=== PATIENT | male | born 1950 | race Caucasian/White ===

== ENCOUNTER → 2019-11-08 13:22 | Outpatient (CLI) | payer MEDICARE, OTHER, SELFPAY ==
--- NOTE | ~2019-11-08 | XR_ITS ---
XR hand BI arthritis min 3V DATE: 11/08/2019 14:34 INDICATION: Right hand pain TECHNIQUE: 4 views of each hand COMPARISON: None FINDINGS: No fracture, dislocation or periosteal reaction or bone destruction. No erosive changes or chondrocalcinosis. Joint spaces are relatively preserved other than narrowing at the distal interphal angeal joint of the fifth digit consistent with osteoarthritis. IMPRESSION: Mild osteoarthritis Reviewed, dictated and finalized at location A. IMPRESSION: Mild osteoarthritis
== END ==
PROVIDERS: PCP Family Medicine; Visit Provider Family Medicine
DX: M19.041 Primary osteoarthritis, right hand (principal); M19.042 Primary osteoarthritis, left hand
CPT/HCPCS: 73130

== ENCOUNTER 2020-01-21 01:50 | Outpatient (CLI) | payer MEDICARE, OTHER, SELFPAY ==
[2020-01-21 21:18] LABS: SARS-CoV-2 RNA PCR Negative
== END 2020-01-21 01:51 | disposition home or self-care (01) ==
LOC: ANHCOVIDDT 01:50
PROVIDERS: PCP Family Medicine; Visit Provider Internal Medicine Gastroenterology
DX: Z01.812 Encounter for preprocedural laboratory examination (principal); Z20.828 Contact with and (suspected) exposure to other viral communicable diseases
CPT/HCPCS: 87635; C9803; U0003

== ENCOUNTER 2020-01-25 01:22 | Day surgery (SDC) | payer MEDICARE, OTHER, SELFPAY ==
[2020-01-19 11:57] VITALS: BMI 36.1
--- NOTE | 2020-01-25 06:58 | WPDANESEPPF ---
Anes - Initial Pre Proc Eval Procedure: Operation Date: 01/25/20 09:30 Proposed Procedures p Screening Colonoscopy - Charly Walton MD Date/Time: 01/25/20 06:58 Surgeon: Charly Walton MD Pre Op Diagnosis: Hx Colon Polyps Patient Data Age: 69 Gender: M Height: 1.73 m Weight: 108 kg Allergies Allergy/AdvReac Type Severity Reaction Status Date / Time allopurinol Allergy Intermediate Gastrointestinal Verified 01/25/20 08:08 Upset Penicillins Allergy Intermediate Unknown Verified 01/25/20 08:08 phenol Allergy Intermediate HIVES Verified 01/25/20 08:08 Home Medications Medication Instructions Recorded Confirmed Type losartan 100 1 tablet PO DAILY #90 tablet 01/21/19 01/19/20 Rx mg-hydrochlorothiazide 12.5 mg tablet cetirizine 5 mg-pseudoephedrine ER 1 tablet PO Q12H PRN #180 tablet 08/29/19 01/19/20 Rx 120 mg tablet,extended release,12hr azelastine 137 mcg (0.1 %) nasal 137 mcg NASAL Q12H #30 ml 10/05/19 01/19/20 Rx spray aerosol levothyroxine 100 mcg tablet 100 mcg PO DAILY #90 tablet 10/18/19 01/19/20 Rx albuterol sulfate 90 mcg/actuation 1 inhalation INHALATION Q4H PRN 10/19/19 01/19/20 History aerosol inhaler atorvastatin 40 mg PO DAILY 01/19/20 01/19/20 History colchicine 0.6 mg PO BID PRN 01/19/20 01/19/20 History Patient hx anesthesia problems: none Family hx anesthesia problems: none PMFSH Past Medical History Medical History (Updated 01/25/20 @ 07:02 by Zane Marin MD) Benign essential hypertension with target blood pressure below 140/90 Bilateral hand pain Elevated high sensitivity C-reactive protein Elevated homocysteine Hypothyroidism, unspecified Mixed hyperlipidemia Nocturia Obesity Osteoarthritis involving multiple joints on both sides of body Polyarthralgia Family History Family History Father Patient's father is , Onset Age: 87 Family history of malignant neoplasm Sibling Patient's brother is , Onset Age: 75 Family history of liver disease, Onset Age: 50 Family history of malignant neoplasm Family history of pancreatic cancer, Onset Age: 76 Grandparent Acute myocardial infarction, Onset Age: 80 Cerebrovascular accident, Onset Age: 80 Mother Family history of pancreatic cancer, Onset Age: 84 Social History Social History Smoking status: Never smoker Alcohol intake: current Drinks per week: 4 Alcohol use details: WINE Substance use: never Substance use type: does not use Spiritual care concerns: No Anes - Eval Final PreProcedure Day of Procedure 01/25/20 06:58 Patient weight: obese Heart: regular rate and rhythm Lungs: clear to auscultation and normal air movement Airway: Mallampati scale class II Neurological: alert and oriented Last oral intake: >/= 8 hours ASA classification: III Emergent: no Anesthetic plan: proceed Anesthesia type and monitoring: general GIVS Informed Consent: The patient's anesthetic plan and its attendant risks and benefits were discussed with the patient/family/POA. Questions were solicited and answers provided to the satisfaction of the patient/family/POA.
[2020-01-25] MEDS: LACTATED RINGERS 1,000 ML 150 ML IV CONT (08:16)
[2020-01-25 08:20] VITALS: BP 149/86; PULSE 87; RESP 22; TEMP 36.8; O2SAT 97; BMI 36.4
--- NOTE | 2020-01-25 08:47 | WPDGICN ---
Assessment and Plan Assessment and plan (1) History of colon polyps: Code(s): Z86.010 - Personal history of colonic polyps Status: Acute Assessment and Plan: Patient has a history of tubular adenomatous colon polyp removed from the colon 2014. Plan is for high-fiber diet. Follow-up colonoscopy is recommended now on at 5 year intervals in the future. GI Consult Note Consult date/time: 01/25/20 08:47 HPI: Cesar Quick is a 69 year old male Seen in evaluation at the request of Dr. Reveles. Patient has a history of colon polyps. In 2014 found to have an adenoma of the colon. Family history is significant his mother had colon polyps as well. Patient states that his current weight appetite bowel movements are normal. He denies abdominal pain. He has had no bleeding. Patient presents today for surveillance colonoscopy. Review of Systems Review of Systems: All systems reviewed & are unremarkable except as noted in HPI and below PMFSH Past Medical History Medical History (Updated 01/25/20 @ 08:49 by Charly Walton MD) Benign essential hypertension with target blood pressure below 140/90 Bilateral hand pain Elevated high sensitivity C-reactive protein Elevated homocysteine Hypothyroidism, unspecified Mixed hyperlipidemia Nocturia Obesity Osteoarthritis involving multiple joints on both sides of body Polyarthralgia Family History Family History Father Patient's father is , Onset Age: 87 Family history of malignant neoplasm Sibling Patient's brother is , Onset Age: 75 Family history of liver disease, Onset Age: 50 Family history of malignant neoplasm Family history of pancreatic cancer, Onset Age: 76 Grandparent Acute myocardial infarction, Onset Age: 80 Cerebrovascular accident, Onset Age: 80 Mother Family history of pancreatic cancer, Onset Age: 84 Social History Social History Smoking status: Never smoker Alcohol intake: current Drinks per week: 4 Alcohol use details: WINE Substance use: never Substance use type: does not use Spiritual care concerns: No Meds Home Medications and Allergies Home Medications Medication Instructions Recorded Confirmed Type losartan 100 1 tablet PO DAILY #90 tablet 01/21/19 01/19/20 Rx mg-hydrochlorothiazide 12.5 mg tablet cetirizine 5 mg-pseudoephedrine ER 1 tablet PO Q12H PRN #180 tablet 08/29/19 01/19/20 Rx 120 mg tablet,extended release,12hr azelastine 137 mcg (0.1 %) nasal 137 mcg NASAL Q12H #30 ml 10/05/19 01/19/20 Rx spray aerosol levothyroxine 100 mcg tablet 100 mcg PO DAILY #90 tablet 10/18/19 01/19/20 Rx albuterol sulfate 90 mcg/actuation 1 inhalation INHALATION Q4H PRN 10/19/19 01/19/20 History aerosol inhaler atorvastatin 40 mg PO DAILY 01/19/20 01/19/20 History colchicine 0.6 mg PO BID PRN 01/19/20 01/19/20 History Allergies Allergy/AdvReac Type Severity Reaction Status Date / Time allopurinol Allergy Intermediate Gastrointestinal Verified 01/25/20 08:08 Upset Penicillins Allergy Intermediate Unknown Verified 01/25/20 08:08 phenol Allergy Intermediate HIVES Verified 01/25/20 08:08 Vital Signs Vital Signs - 24 hr 01/25/20 08:20 Temperature 98.2 F Pulse Rate 87 Respiratory Rate 22 H Blood Pressure 149/86 H Pulse Oximetry 97 Exam Narrative: Exam Narrative: Physical exam reveals patient to be alert. Vital signs stable. HEENT exam unremarkable. Lungs are clear to auscultation and percussion. Heart is without murmur or extra sounds. Abdominal exam bowel sounds are present soft nontender with no hepatosplenomegaly. Digital external rectal exam is normal.
[2020-01-25 09:17] VITALS: BP 123/79; PULSE 83; RESP 21; O2SAT 96
[2020-01-25 09:27] VITALS: BP 136/88; PULSE 76; RESP 21; O2SAT 96
[2020-01-25 09:37] VITALS: BP 138/94; PULSE 75; RESP 22; O2SAT 99
[2020-01-25 09:45] VITALS: BP 155/97; PULSE 71; RESP 20; O2SAT 98
== END 2020-01-25 09:49 | disposition home or self-care (01) ==
PROVIDERS: PCP Family Medicine; Visit Provider Internal Medicine Gastroenterology
PROC: 0DJD8ZZ Inspection of Lower Intestinal Tract, Via Natural or Artificial Opening Endoscopic (ICD-10-PCS; CPT 45378; principal; 2020-01-25 09:30)
DX: Z12.11 Encounter for screening for malignant neoplasm of colon (principal); D12.2 Benign neoplasm of ascending colon; D12.5 Benign neoplasm of sigmoid colon; K64.8 Other hemorrhoids; I10 Essential (primary) hypertension; E03.9 Hypothyroidism, unspecified; E78.2 Mixed hyperlipidemia; M19.90 Unspecified osteoarthritis, unspecified site; E66.9 Obesity, unspecified; Z68.36 Body mass index [BMI] 36.0-36.9, adult
CPT/HCPCS: 45385; 88305; J2704; J7120

== ENCOUNTER → 2020-06-12 09:44 | Outpatient (CLI) | payer MEDICARE, OTHER, SELFPAY ==
--- NOTE | ~2020-06-12 | CT_ITS ---
EXAMINATION: CT sinus wo con EXAM DATE: 06/12/2020 09:56 INDICATION: Chronic sinusitis, surgery 4-5 years ago. TECHNIQUE: Spiral CT of the sinuses was acquired in the axial plane. Coronal and sagittal reformatte d images were also reviewed. The dose-length product (DLP) for this examination was 259.66 mGy-cm. Iterative reconstruction (ASIR) was used as dose reduction technique. Comparison is made to prior exa mination from 12/21/2018. FINDINGS: The sinuses are normally developed. The sinuses are well aerated. Small amount of opac ity occluding the left ostiomeatal unit infundibulum, however there appears to be a widely patent win rosemarie procedure. There is trace amount of fluid within both maxillary sinuses. Otherwise sinuses are we ll aerated. There is no sinus wall thickening. There is mild S-shaped nasal septal deviation. The mastoid air cells and middle ears are well aerated. External auditory canals are patent. The orb its and visualized soft tissues are unremarkable. IMPRESSION: Trace bilateral maxillary sinus fluid. Reviewed, dictated and finalized at location A.
== END ==
PROVIDERS: PCP Family Medicine; Visit Provider Otolaryngology
DX: J32.9 Chronic sinusitis, unspecified (principal)
CPT/HCPCS: 70486

== ENCOUNTER 2021-01-02 14:36 | Outpatient (CLI) | payer MEDICARE, SELFPAY ==
--- NOTE | ~2021-01-02 | CT_ITS ---
EXAMINATION: CT abdomen pelvis wo con DATE: 01/02/2021 15:00 INDICATION: Left lower quadrant abdominal pain. TECHNIQUE: Computed tomography (CT) of the abdomen and pelvis was performed without intravenous contr ast. Automated exposure control and iterative reconstruction technique were employed. The dose-length product was 1381.85 mGy-cm. COMPARISON: None. FINDINGS: The visualized portions of the lung bases demonstrate mild atelectasis on the right. No ple ural effusion. The heart size is normal. There are coronary artery calcifications. No pericardial eff usion. There is diffuse hepatic steatosis. The gallbladder, spleen, pancreas, adrenal glands, and kid neys are normal. There is no urolithiasis. There are scattered diverticula in the colon. There is fat stranding around a diverticulum of sigmoid colon with local bowel wall thickening, consistent with d iverticulitis. The appendix is normal. There is prominent fat in left inguinal canal that may be a he rnia. There are no pathologically enlarged lymph nodes. There is no free intraperitoneal fluid. There are chronic bilateral L5 pars defects. There is 4 mm anterolisthesis of L5 on S1. There is mild thor acolumbar spondylosis. IMPRESSION: 1. Acute sigmoid diverticulitis. No perforation or abscess. Reviewed, dictated and finalized at location A.
== END 2021-01-02 14:37 | disposition home or self-care (01) ==
LOC: ANHIMG 14:41
PROVIDERS: PCP Family Medicine; Visit Provider Family Medicine
DX: R10.32 Left lower quadrant pain (principal); K57.32 Diverticulitis of large intestine without perforation or abscess without bleeding
CPT/HCPCS: 74176

== ENCOUNTER 2021-05-29 10:16 | Outpatient (CLI) | payer MEDICARE, SELFPAY ==
--- NOTE | 2021-05-29 11:00 | NEURO_ITS ---
Impression: # Complains of numbness of hands. # Severe left Carpal Tunnel Syndrome. # Right Carpal Tunnel Syndrome. # No ulnar neuropathy. # Needle/EMG exam revealed neurogenic changes in left 1st DI and Ext Indicis. # Patient does have ulnar to median cross innervation. # Patient would benefit from MRI C-spine to rule out possibility of cervical myelopathy. Nerve Conduction Studies Anti Sensory Summary Table Stim Site NR Peak (ms) P-T Amp (?V) Site1 Site2 Delta-P (ms) Dist (cm) Keven (m/s) Left Median Anti Sensory (2-3nd Digit) Wrist 8.1 7.7 Wrist 2-3nd Digit 8.1 14.0 17 Wrist 9.4 7.6 Wrist 2-3nd Digit 8.1 14.0 17 Right Median Anti Sensory (2-3nd Digit) Wrist 6.2 27.3 Wrist 2-3nd Digit 6.2 14.0 23 Wrist 6.8 17.9 Wrist 2-3nd Digit 6.2 14.0 23 Left Radial Anti Sensory (Base 1st Digit) Wrist 2.1 16.1 Wrist Base 1st Digit 2.1 0.0 Right Radial Anti Sensory (Base 1st Digit) Wrist 2.3 18.1 Wrist Base 1st Digit 2.3 0.0 Left Ulnar Anti Sensory (5th Digit) Wrist 2.5 35.4 Wrist 5th Digit 2.5 14.0 56 Right Ulnar Anti Sensory (5th Digit) Wrist 2.6 17.1 Wrist 5th Digit 2.6 14.0 54 Motor Summary Table Stim Site NR Onset (ms) O-P Amp (mV) Site1 Site2 Delta-0 (ms) Dist (cm) Keven (m/s) Left Median Motor (Abd Poll Brev) Wrist 9.8 1.0 Elbow Wrist 7.1 30.0 42 Elbow 16.9 0.9 Right Median Motor (Abd Poll Brev) Wrist 3.8 2.1 Elbow Wrist 6.5 30.0 46 Elbow 10.3 0.9 ELB/ADM Wrist 0.2 0.0 Left Ulnar Motor (Abd Dig Minimi) Wrist 3.0 3.6 A Elbow Wrist 4.9 30.0 61 A Elbow 7.9 2.3 Right Ulnar Motor (Abd Dig Minimi) Wrist 2.4 6.5 A Elbow Wrist 5.5 32.0 58 A Elbow 7.9 5.6 B Elbow Wrist 0.3 0.0 F Wave Studies NR F-Lat (ms) L-R F-Lat (ms) Left Median (Mrkrs) (Abd Poll Brev) 30.07 0.53 Right Median (Mrkrs) (Abd Poll Brev) 30.60 0.53 Left Ulnar (Mrkrs) (Abd Dig Min) 30.54 0.15 Right Ulnar (Mrkrs) (Abd Dig Min) 30.39 0.15 EMG Side Muscle Nerve Root Ins Act Fibs Amp Dur Recrt Comment Right 1stDorInt Ulnar C8-T1 Nml Nml Nml Nml Nml Right Ext Indicis Radial (Post Int) C7-8 Nml Nml Nml Nml Nml Right Ext Digitorum Radial (Post Int) C7-8 Nml Nml Nml Nml Nml Right BrachioRad Radial C5-6 Nml Nml Nml Nml Nml Right PronatorTeres Median C6-7 Nml Nml Nml Nml Nml Right Abd Poll Brev Median C8-T1 Nml Nml Nml Nml Nml Left 1stDorInt Ulnar C8-T1 Nml Nml Nml >12ms Reduced Left Ext Indicis Radial (Post Int) C7-8 Nml Nml Nml >12ms Reduced Left Ext Digitorum Radial (Post Int) C7-8 Nml Nml Nml Nml Nml Left BrachioRad Radial C5-6 Nml Nml Nml Nml Nml Left PronatorTeres Median C6-7 Nml Nml Nml Nml Nml Left Abd Poll Brev Median C8-T1 Nml Nml Nml Nml Nml Right ABD Dig Min Ulnar C8-T1 Nml Nml Nml Nml Nml Left ABD Dig Min Ulnar C8-T1 Nml Nml Nml Nml Nml MTDD
== END 2021-05-29 10:17 | disposition home or self-care (01) ==
LOC: ANHNEURO 10:18
PROVIDERS: PCP Family Medicine; Visit Provider Family Medicine
DX: G56.03 Carpal tunnel syndrome, bilateral upper limbs (principal)
CPT/HCPCS: 95886; 95911

== ENCOUNTER 2021-06-11 16:32 | Outpatient (CLI) | payer MEDICARE, SELFPAY ==
--- NOTE | ~2021-06-11 | MR_ITS ---
EXAMINATION: MR cervical spine wo con DATE: 06/11/2021 17:51 INDICATION: Neck pain. Numbness and tingling. Abnormal electromyelogram and nerve connection study. TECHNIQUE: Magnetic resonance imaging (MRI) of the cervical spine was performed without intravenous c ontrast. Sequences included sagittal T2-weighted FSE, sagittal and coronal T2-weighted FS FSE, sagitt al T1-weighted FSE, axial MERGE, and axial T2-weighted FSE. COMPARISON: None FINDINGS: There is 11 degrees levoscoliosis of cervicothoracic spine. There is kyphosis of cervical s pine. There is 3 mm anterolisthesis of C7 on T1. Vertebral body heights are normal. There is moderate ly decreased disc height at C4-C5, severely decreased disc height at C5-C6 and C6-C7, and moderately decreased disc height at C7-T1. The spinal cord signal intensity is normal. The following disc levels are specifically discussed: C2-C3: The disc does not extend beyond the endplate margin. There is mild left uncovertebral joint os teoarthritis. There is mild bilateral facet joint osteoarthritis. There is no neural foraminal stenos is. There is no central canal stenosis. C3-C4: The disc is bulging. There is moderate right and severe left uncovertebral joint osteoarthriti s. There is severe bilateral facet joint osteoarthritis. There is moderate right and severe left neur al foraminal stenosis. There is mild central canal stenosis. C4-C5: The disc is bulging. There is moderate right and severe left uncovertebral joint osteoarthriti s. There is mild right facet joint osteoarthritis. There is ankylosis of left facet joint with modera te hypertrophy. There is mild right and moderate left neural foraminal stenosis. There is mild centra l canal stenosis. C5-C6: The disc is bulging. There is severe bilateral uncovertebral joint osteoarthritis. There is mi ld right and severe left facet joint osteoarthritis. There is mild right and moderate left neural for aminal stenosis. There is mild central canal stenosis. C6-C7: The disc is bulging. There is severe bilateral uncovertebral joint osteoarthritis. There is mo derate bilateral facet joint osteoarthritis. There is mild right and moderate left neural foraminal s tenosis. There is mild central canal stenosis. C7-T1: The disc is bulging. There is severe bilateral uncovertebral joint osteoarthritis. There is se macy bilateral facet joint osteoarthritis. There is mild right and severe left neural foraminal steno sis. There is mild central canal stenosis. IMPRESSION: 1. Severe cervical spondylosis. Reviewed, dictated and finalized at location A.
== END 2021-06-11 16:33 | disposition home or self-care (01) ==
LOC: ANHIMG 16:33
PROVIDERS: PCP Family Medicine; Visit Provider Family Medicine
DX: M47.813 Spondylosis without myelopathy or radiculopathy, cervicothoracic region (principal); M48.03 Spinal stenosis, cervicothoracic region; R94.131 Abnormal electromyogram [EMG]; G95.9 Disease of spinal cord, unspecified
CPT/HCPCS: 72141

== ENCOUNTER 2021-06-28 13:42 | Outpatient (CLI) | payer MEDICARE, SELFPAY ==
--- NOTE | 2021-07-02 22:04 | WPDPFTINT ---
PFT Procedure Performed PFT Procedure Performed Spirometry with Pre/Post Bronchodilator Plethysmography (Lung Vol) Diffusing Cap (DLCO) Flow Vol Loop PFT Interpretation DOS: 06/28/2021 REQUESTING: Dr Brian Reveles REASON FOR TESTING: Cough PULMONARY FUNCTION TESTS Results are reliable and reproducible. Spirometry: Pre-bronchodilator FEV1 is 73% predicted, 2.25 L which is mildly reduced. FVC pre bronchodilators 88%, 3.58 L, normal. FEV1/FVC is 63%, decreased and consistent with airflow obstruction. After bronchodilator administration there is a 15% increase in FEV1 which is greater than 200 mils. This is a significant response Lung volumes: total lung capacity is 102%, 6.75 L, normal. FRC is 110% predicted, 3.83 L which is normal. ERV is 28% which is reduced. Residual volume is 137%, 3.16 L, above normal consistent with air trapping. The RV/TLC is increased 47% reflecting air trapping. Airway resistance is increased. Diffusion: DLCO is 102%, normal. Flow volume loop: Normal. IMPRESSION: There is a mild obstructive ventilatory impairment with air trapping and normal diffusion. There was an excellent response to bronchodilator. IN the proper clinical setting, this pattern may be compatible with asthma. Tiffanie Hathaway MD
== END 2021-06-28 13:43 | disposition home or self-care (01) ==
PROVIDERS: PCP Family Medicine; Visit Provider Family Medicine
DX: R05.9 Cough, unspecified (principal); R94.2 Abnormal results of pulmonary function studies
CPT/HCPCS: 94060; 94726; 94729

== ENCOUNTER 2024-02-18 09:37 | Outpatient (CLI) | payer MEDICARE, SELFPAY ==
--- NOTE | ~2024-02-18 | CT_ITS ---
Non-contrast CT scan of the Abdomen and Pelvis Clinical indication: Abdominal pain Technique: 2.5 mm axial scans were obtained through the abdomen and pelvis without intravenous or or al contrast. Dose reduction technique was used on this scan by utilizing automated exposure control a nd iterative reconstruction technique. The dose-length product (DLP) was 1300.01 mGy-cm. COMPARISON: 01/02/2021 Findings: Images through the lung bases reveal no abnormalities. There is no evidence of renal or ureteral calculi. The kidneys and the ureters are nondilated. The liver, spleen, pancreas, gallbladder, and adrenals appear normal. There is no aortic aneurysm. There is no evidence of bowel obstruction. There is wall thickening and inflammatory change of the di stal descending colon with underlying diverticular disease, consistent with acute diverticulitis. No abscess or free air. Images through the pelvis were performed. There is no evidence of ascites or lymphadenopathy. Urinary bladder unremarkable. No pelvic mass seen. No ascites. Bilateral L5 pars interarticularis defects are present, with grade 1 anterolisthesis of L5 over S1. Impression: Acute diverticulitis of the distal descending colon. No abscess or free air. No bowel obstruction. Reviewed, dictated and finalized at [facility]. [employer]IST Impression: Acute diverticulitis of the distal descending colon. No abscess or free air. No bowel obstruction.
== END 2024-02-18 09:38 | disposition home or self-care (01) ==
LOC: ANHIMG 09:42
PROVIDERS: PCP Family Medicine; Visit Provider Nurse Practitioner Family
DX: K57.32 Diverticulitis of large intestine without perforation or abscess without bleeding (principal)
CPT/HCPCS: 74176

== ENCOUNTER 2024-12-02 07:37 | Day surgery (SDC) | payer MEDICARE, SELFPAY ==
[2024-11-09 15:43] VITALS: BMI 37.7
[2024-11-22 12:27] VITALS: BMI 37.5
--- OUTSIDE RECORDS SUMMARY | 2024-12-02 07:44 | XMS_ITS | Clinical Summary ---
Author Organization [facility] Address [address] [place] [address] Care Team Providers Care Director Of Retail Analytics Name Role Phone Unavailable Primary Care Provider Unavailabl e Allergies Active Allergy Reactions Criticality Noted Date Comments Penicillins Hives High 07/30/2021 Medications atorvastatin (LIPITOR) 40 mg tablet Take 40 mg by mouth daily. 2 Active azelastine (ASTELIN) 137 mcg/actuation nasal spray USE 1 SPRAY(S) IN EACH NOSTRIL EVERY 12 HOURS 2 Active Allergy Relief-D, cetirizine, 5-120 mg tablet TAKE 1 TABLET BY MOUTH EVERY 12 HOURS NEEDED FOR ALLERGY SYMPTOMS 2 Active levothyroxine 100 mcg tablet Take 100 mcg by mouth daily. 2 Active irbesartan-hydroCH LOROthiazide (AVALIDE) 150-12.5 mg tablet Take 1 Tablet by mouth daily. 2 Active COLCHICINE ORAL Take 1.63 mg by mouth. Active ketotifen (Allergy Eye, ketotifen,) 0.025% solution Acti ve Fish Oil-Menlo-3 Fatty Acids 300-500 mg Capsule Take by mouth. Active CALCIUM CARBONATE-VITAMIN D3 ORAL Take by mouth. Active cannabidiol, CBD, product, for documentation purposes, Take by mouth. Lotion and drops Active methylPREDNISolone (MEDROL) 4 mg tabletIndications: Carpal tunnel syndrome, unspecified upper limb TAKE 1 TAB BY MOUTH FOR 7 DAYS 21 Tablet 2 Active Active Problems No known active problems Social History Tobacco Use Types Packs/Day Years Used Date Smoking Tobacco: Never Assessed Sex and Gender Information Value Date Recorded Sex Assigned at Not on file Legal Sex Male 9:45 AM CDT Gender Identity Not on file Sexual Orientation Not on file Last Filed Vital Signs Vital Sign Reading Time Taken Comments Blood Pressure 138/82 07/30/2021 1:40 PM CDT Pulse - - Temperature 37.1 C (98.7 F) 07/30/2021 1:40 PM CDT Respiratory Rate 18 07/30/2021 1:40 PM CDT Oxygen Saturation - - Inhaled Oxygen Concentration - - Weight 114.3 kg (252 lb) 07/30/2021 1:40 PM CDT Height 172.7 cm (5' 8) 07/30/2021 1:40 PM CDT Body Mass Index 38.32 07/30/2021 1:40 PM CDT Plan of Treatment Health Maintenance Due Date Last Done Comments DTAP/TDAP/TD VACCINES (1 - Tdap) 12/10/1971 COLORECTAL SCREENING 1997 Colorectal Cancer Screening 1997 FIT-DNA Q 3 years 1997 FIT/FOBT Q 1 year 1997 Flex Sig/CT Colonography Q 5 years 1997 PNEUMOCOCCAL VACCINE 50+ YEARS (1 of 1 - PCV) 12/10/19 03 ZOSTER VACCINE (1 of 2) 2002 INFLUENZA VACCINE (#1) 2024 RSV VACCINE (60+ or ) (1 - 1-dose 75+ series) 12/10/2027 Insurance [employer] [facility] Address: [facility] [id number] [place] [id number]
--- OUTSIDE RECORDS SUMMARY | 2024-12-02 07:44 | XMS_ITS | Clinical Summary ---
Author Organization [facility] Address [address] [place] [id number] Care Team Providers Care Station Baggage Agent Name Role Phone Brian Reveles MD Primary Care Provider [phone] Allergies Active Allergy Reactions Criticality Noted Date Comments Benzocaine-Phenol Hives Medium 10/28/2022 Penicillins Hives High 07/30/2021 Medications levothyroxine (SYNTHROID) 100 mcg tablet Take 1 tablet (100 mcg total) by mouth daily Active irbesartan-hyd rochlorothiazi de (AVALIDE) 150-12.5 mg per tablet Take 1 tablet by mouth daily Active cetirizine-pse udoephedrine ER (ZyrTEC-D) 5-120 mg per 12 hr tablet 2 (two) times a day Active azelastine (ASTELIN) 137 mcg (0.1 %) nasal spray 2 (two) times a day 2 Active colchicine, gout, (COLCRYS) 0.6 mg tablet daily as needed 3 Active ketotifen (ZADITOR) 0.025 % ophthalmic solution Active omega-3 fatty acids-fish oil 300-500 mg capsule Take by mouth Active fluticasone propionate (FLONASE) 50 mcg/actuation nasal spray daily 3 Active [facility] vitamin D3 4,000 IU or 400 IU ([id number]) capsule Take by mouth daily Take at approximately the same time each day. Active HYDROcodone-ac etaminophen (NORCO) 5-325 mg per tabletIndicati ons:Pain Take 1 tablet by mouth every 6 (six) hours as needed for pain 15 tablet Active atorvastatin (LIPITOR) 40 mg tablet 3 Active cyanocobalamin (Vitamin B-12) 1,[address] 1 TABLET EVERY DAY BY SUBLINGUAL ROUTE IN THE MORNING FOR 90 DAYS. Active doxycycline 100 mg capsule Take 1 tablet/capsule (100 mg total) by mouth 2 (two) times a day Active Breo Ellipta 100-25 mcg/dose diskus inhaler 1 puff daily Ac tive montelukast (SINGULAIR) 10 mg tablet Take 1 tablet (10 mg total) by mouth nightly Active omeprazole (PriLOSEC) 40 mg capsule TAKE 1 CAPSULE BY MOUTH EVERY DAY 30 MINUTES BEFORE MORNING MEAL FOR 90 DAYS Active levoFLOXacin (LEVAQUIN) 500 mg tablet Take 1 tablet (500 mg total) by mouth daily Active albuterol HFA (PROVENTIL HFA,VENTOLIN HFA,PROAIR HFA) 90 mcg/actuation inhaler 2 INH INHALED EVERY 4 HOURS NEEDED FOR SHORTNESS OF BREATH OR WHEEZING Active Active Problems Problem Noted Date Diagnosed Date Carpal tunnel syndrome, bilateral 11/05/2022 Trigger finger, left index finger 11/05/2022 Hypothyroidism 10/23/2022 Impaired fasting glucose 10/23/2022 Immunizations Immunization Administration Dates Next Due Influenza, Quadrivalent, Spl it, Preservative Free, Intramuscular 12/27/2013 Influenza, Trivalent, High D ose, Split, Preservative Free, Intramuscular 01/18/2019,01/02/2018 Pneumococcal Conjugate PCV 13 01/02/2018 ZOSTER Recombinant 01/18/2019 Surgical History Surgery Date Site/Laterality Comments KNEE ARTHROSCOPY W/ LATERAL RELEASE both knees 1985 Medical History Medical History Date Comments Arthritis 2019 Hypertension 2000 Thyroid disease 2020 Allergic rhinitis Hypothyroidism Family History Medical History Relation Name Comments Cancer Father Duke Quick Cancer Mother Tracy Quick Relation Name Status Comments Father Duke Quick Mother Tracy Quick Social History Tobacco Use Types Packs/Day Years Used Date Smoking Tobacco: Never Passive Smoke Exposure: Never Smokeless Tobacco: Never Tobacco Cessation:Counseling Given: Not Answered AUDIT-C Answer Date Recorded Q1: How often do you have a drink containing alc ohol? 2-3 times a week 12/17/2022 Q2: How many drinks containi ng alcohol do you have on a typical day when you are drinking? 3 or 4 12/17/2022 Q3: How often do you have si x or more drinks on one occasion? Never 12/17/2022 Personal Safety Answer Date Recorded Have you ever been in or are you currently in a harmful physical or emotional relationship or is someone making you feel afraid or unsafe? 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 file Not on file Not on danny e Obstetrics History Last Filed Vital Signs Vital Sign Reading Time Taken Comments Blood Pressure 157/84 12/17/2022 12:10 PM CDT Pulse 69 12/17/2022 12:10 PM CDT Temperature 36.2 C (97.2 F) 12/17/2022 12:15 PM CDT Respiratory Rate 19 12/17/2022 12:10 PM CDT Oxygen Saturation 100% 12/17/2022 12:10 PM CDT Inhaled Oxygen Concentration - - Weight 104.3 kg (230 lb) 10/28/2022 2:25 PM CDT Height 172.7 cm (5' 8) 10/28/2022 2:25 PM CDT Body Mass Index 34.97 10/28/2022 2:25 PM CDT Plan of Treatment Health Maintenance Due Date Last Done Comments Colon Cancer Screening-Colonoscopy 1950 Depression Screening 1950 Hepatitis C Screening 1950 DTaP/Tdap/Td Vaccine (1 - Tdap) 12/10/1963 Hepatitis B Screening 1970 Abdominal Aortic Aneurysm (A AA) Screen 2017 Well Visit 65+ 2017 Pneumococcal vaccine 65+ (2 of 2 - PCV20 or PCV21) 01/02/2019 01/02/2018 Zoster Vaccine (2 of 2) 03/15/2019 01/18/2019 Fall Risk Assessment 12/18/2023 12/17/2022 Covid-19 Vaccine ( - season) 2024 03/05/2021, 05/29/2020, 04/19/2020 Influenza Vaccine (#1) 2024 9, 01/02/2018, 12/27/2013 Insurance [employer] MEDICARE GOLD AET[employer] MEDICARE GOLD Care Teams Station Baggage Agent Relationship Specialty Start Date End Date Brian Reveles MD [address] [address] PCP - General Family Medicine 08/22/22
[2024-12-02 07:55] VITALS: BP 142/75; PULSE 79; RESP 18; TEMP 37.1; O2SAT 96
[2024-12-02] MEDS: LACTATED RINGERS 1,000 ML 150 ML IV CONT (08:00)
--- NOTE | 2024-12-02 09:01 | WPDANESEPPF ---
Anes - Initial Pre Proc Eval Procedure: Operation Date: 12/02/24 09:30 Proposed Procedures p Screening Colonoscopy - Jonny Tolliver MD Date/Time: 12/02/24 09:01 Surgeon: Jonny Tolliver MD Pre Op Diagnosis: Personal history of colon polyps, unspecified Patient Data Age: 73 Gender: M Height: 1.73 m Weight: 111.5 kg Last Vital Signs Temp 98.7 F 12/02/24 07:55 Pulse 79 12/02/24 07:55 Resp 18 12/02/24 07:55 BP 142/75 H 12/02/24 07:55 Pulse Ox 96 12/02/24 07:55 O2 Del Method Room Air 12/02/24 07:55 Allergies Allergy/AdvReac Type Severity Reaction Status Date / Time allopurinol Allergy Intermediate Gastrointestinal Verified 12/02/24 07:54 Upset Penicillins Allergy Intermediate Unknown Verified 12/02/24 07:54 phenol Allergy Intermediate HIVES Verified 12/02/24 07:54 Home Medications ?Medication ?Instructions ?Recorded ?Confirmed ?Type cholecalciferol (vitamin D3) 50 2,000 unit PO DAILY 05/01/21 12/02/24 History mcg (2,000 unit) capsule albuterol sulfate 90 mcg/actuation 2 inh inhalation Q4H PRN shortness 04/18/22 12/02/24 Rx aerosol inhaler (ProAir HFA) of breath or wheezing #8.5 grams atorvastatin 40 mg tablet 40 mg PO DAILY #90 tabs 03/29/24 12/02/24 Rx levothyroxine 100 mcg tablet 100 mcg PO DAILY #90 tabs 03/29/24 12/02/24 Rx colchicine 0.6 mg tablet 0.6 mg PO BID PRN Inflammation 03/30/24 12/02/24 Rx #180 tabs irbesartan 150 1 tablet PO DAILY #90 tabs 06/29/24 12/02/24 Rx mg-hydrochlorothiazide 12.5 mg tablet montelukast 10 mg tablet 10 mg PO QHS #90 tabs 06/29/24 12/02/24 Rx azelastine 137 mcg (0.1 %) nasal 137 mcg intranasal Q12H PRN 11/22/24 12/02/24 History spray allergy symptoms cetirizine 5 mg-pseudoephedrine ER 1 tablet PO BID PRN allergy 11/22/24 12/02/24 History 120 mg tablet,extended symptoms release,12hr (Allergy Relief-D (cetirizine)) fluticasone propionate 50 1 spray intranasal BID PRN allergy 11/22/24 12/02/24 History mcg/actuation nasal symptoms spray,suspension (Flonase Allergy Relief) Patient hx anesthesia problems: none Family hx anesthesia problems: none Results Review: All pre-operative results and documents have been reviewed as part of the pre-operative evaluation. [facility] Past Medical History Medical History (Updated 10/25/24 @ 11:57 by Brian Reveles MD) Posterior right knee pain (10/21/24) Family history of GI malignancy nieces and nephews with GI malignancies Trigger finger of right hand (~08/2024) ring finger Left lower quadrant abdominal pain BMI 36.0-36.9,adult At low risk for fall BMI 35.0-35.9,adult BMI 39.0-39.9,adult Encounter for prostate cancer screening PSA 0.81 on 04/29/2022. PSA 0.83 on 05/25/2023. PSA 0.96 on 08/08/2024. Screening for diabetic retinopathy no diabetic retinopathy on 03/06/2022. No diabetic retinopathy 04/09/2023. no retinopathy 01/29/2024. Encounter for hepatitis C screening test for low risk patient (04/29/22) hepatitis-C screening was negative on 04/29/2022. Obesity (BMI 30-39.9) Acute bronchitis Mild persistent asthma (~2021) pulmonary function study on 06/28/2021 reveals mild obstructive defect with excellent response to bronchodilator. Cough Cervical myelopathy cross innervation of ulnar to the median on EMG and nerve conduction study of the right upper extremity 05/29/2021. MRI of the cervical spine on 06/11/2021 reveals severe cervical spondylosis. Gastro-esophageal reflux disease without esophagitis Bilateral carpal tunnel syndrome EMG and nerve conduction study of the upper extremities on 05/29/2021 reveals bilateral carpal tunnel syndrome severe on the left with cross innervation ulnar to the median distribution. Acute non-recurrent maxillary sinusitis Acute diverticulitis (12/30/20) acute sigmoid diverticulitis on CT on 01/02/2021. Acute diverticulitis descending colon 02/18/2024. Acute abdominal pain in left lower quadrant BMI 38.0-38.9,adult Dupuytren's contracture of left hand Left hamstring muscle strain Body mass index 37.0-37.9, adult Obesity Polyarthralgia Bilateral hand pain Elevated homocysteine Elevated high sensitivity C-reactive protein normal at 1.6 on 04/15/2021. level slightly high at 2.0 on 12/05/2023 lif[facility]. Nocturia PSA 0.77 on 04/15/2021 Benign essential hypertension with target blood pressure below 140/90 Mixed hyperlipidemia total cholesterol 140, triglycerides 141, HDL 58, LDL 60 on 04/15/2021. Total cholesterol 145, triglycerides 142, HDL 66 and LDL 56 on 08/26/2021. Total cholesterol 170, HDL 77, triglycerides 141, LDL 71 on 04/29/2022. Cholesterol 131, triglycerides 103, HDL 52, LDL 60 with ratio 2.5 on 11/19/2022. cholesterol 152, triglycerides 97, HDL 67, LDL 67 with ratio 2.3 on 05/25/2023. Cholesterol 174, triglycerides 124, HDL 71, LDL 80 with ratio of 2.5 on 12/21/2023. Cholesterol 140, triglycerides 123, HDL 62, LDL 58 with ratio 2.3 on 08/08/2024. Osteoarthritis involving multiple joints on both sides of body Hypothyroidism, unspecified TSH 0.77 on 04/15/2021. TSH 2.43 on 04/29/2022. TSH 2.96 on 11/19/2022. TSH 1.08, free T4 1.4, T3 total 84 on 08/08/2024. Family History Family History Father Patient's father is , Onset Age: 87 Family history of malignant neoplasm Sibling Patient's brother is , Onset Age: 75 Family history of liver disease, Onset Age: 50 Family history of malignant neoplasm Family history of pancreatic cancer, Onset Age: 76 Grandparent Acute myocardial infarction, Onset Age: 80 Cerebrovascular accident, Onset Age: 80 Mother Family history of pancreatic cancer, Onset Age: 84 Social History Social History Smoking status: Never smoker Alcohol intake: current Drinks per week: 7 Alcohol use details: WINE Substance use: never Substance use type: does not use Lack of Transportation: No Lack of Food: Never True Current Housing: I Have Housing Concerned About Future Housing: No Difficulty Paying Gas/Electric Bills: No Difficulty Paying for Meds: No Currently Unemployed: No Education: Bachelor's Degree Difficulty w/ Childcare or Family Care: No Spiritual care concerns: No Anes - Eval Final PreProcedure Day of Procedure 12/02/24 09:01 Heart: regular rate and rhythm Lungs: clear to auscultation Airway: Mallampati scale class III Neurological: alert and oriented Last oral intake: >/= 8 hours ASA classification: II Anesthetic plan: proceed Anesthesia type and monitoring: monitored anesthesia care Results Review: All pre-operative results and documents have been reviewed as part of the pre-operative evaluation. Informed Consent: The patient's anesthetic plan and its attendant risks and benefits were discussed with the patient/family/POA. Questions were solicited and answers provided to the satisfaction of the patient/family/POA.
--- NOTE | 2024-12-02 09:47 | WPDANESPN ---
Anes - Prog Note Post-Op Date/Time: 12/02/24 09:47 Vital Signs: Last Vital Signs Temp 98.7 F 12/02/24 07:55 Pulse 79 12/02/24 07:55 Resp 18 12/02/24 07:55 BP 142/75 H 12/02/24 07:55 Pulse Ox 96 12/02/24 07:55 O2 Del Method Room Air 12/02/24 07:55 Pain Score (VAS): no Patient Feedback: Patient satisfied with anesthetic care.
--- NOTE | 2024-12-02 09:48 | PM.IMHP ---
H&P: HPI History of Present Illness Date/Time: 12/02/24 09:48 Chief Complaint: history of colon polyps Narrative: The patient has a history of colonic polyps, the last colonoscopy was 5 y ago Review of Systems Review of Systems: All systems reviewed & are unremarkable except as noted in HPI and below [facility] Past Medical History Medical History (Updated 10/25/24 @ 11:57 by Brian Reveles MD) Posterior right knee pain (10/21/24) Family history of GI malignancy nieces and nephews with GI malignancies Trigger finger of right hand (~08/2024) ring finger Left lower quadrant abdominal pain BMI 36.0-36.9,adult At low risk for fall BMI 35.0-35.9,adult BMI 39.0-39.9,adult Encounter for prostate cancer screening PSA 0.81 on 04/29/2022. PSA 0.83 on 05/25/2023. PSA 0.96 on 08/08/2024. Screening for diabetic retinopathy no diabetic retinopathy on 03/06/2022. No diabetic retinopathy 04/09/2023. no retinopathy 01/29/2024. Encounter for hepatitis C screening test for low risk patient (04/29/22) hepatitis-C screening was negative on 04/29/2022. Obesity (BMI 30-39.9) Acute bronchitis Mild persistent asthma (~2021) pulmonary function study on 06/28/2021 reveals mild obstructive defect with excellent response to bronchodilator. Cough Cervical myelopathy cross innervation of ulnar to the median on EMG and nerve conduction study of the right upper extremity 05/29/2021. MRI of the cervical spine on 06/11/2021 reveals severe cervical spondylosis. Gastro-esophageal reflux disease without esophagitis Bilateral carpal tunnel syndrome EMG and nerve conduction study of the upper extremities on 05/29/2021 reveals bilateral carpal tunnel syndrome severe on the left with cross innervation ulnar to the median distribution. Acute non-recurrent maxillary sinusitis Acute diverticulitis (12/30/20) acute sigmoid diverticulitis on CT on 01/02/2021. Acute diverticulitis descending colon 02/18/2024. Acute abdominal pain in left lower quadrant BMI 38.0-38.9,adult Dupuytren's contracture of left hand Left hamstring muscle strain Body mass index 37.0-37.9, adult Obesity Polyarthralgia Bilateral hand pain Elevated homocysteine Elevated high sensitivity C-reactive protein normal at 1.6 on 04/15/2021. level slightly high at 2.0 on 12/05/2023 [facility]. Nocturia PSA 0.77 on 04/15/2021 Benign essential hypertension with target blood pressure below 140/90 Mixed hyperlipidemia total cholesterol 140, triglycerides 141, HDL 58, LDL 60 on 04/15/2021. Total cholesterol 145, triglycerides 142, HDL 66 and LDL 56 on 08/26/2021. Total cholesterol 170, HDL 77, triglycerides 141, LDL 71 on 04/29/2022. Cholesterol 131, triglycerides 103, HDL 52, LDL 60 with ratio 2.5 on 11/19/2022. cholesterol 152, triglycerides 97, HDL 67, LDL 67 with ratio 2.3 on 05/25/2023. Cholesterol 174, triglycerides 124, HDL 71, LDL 80 with ratio of 2.5 on 12/21/2023. Cholesterol 140, triglycerides 123, HDL 62, LDL 58 with ratio 2.3 on 08/08/2024. Osteoarthritis involving multiple joints on both sides of body Hypothyroidism, unspecified TSH 0.77 on 04/15/2021. TSH 2.43 on 04/29/2022. TSH 2.96 on 11/19/2022. TSH 1.08, free T4 1.4, T3 total 84 on 08/08/2024. Family History Family History Father Patient's father is , Onset Age: 87 Family history of malignant neoplasm Sibling Patient's brother is , Onset Age: 75 Family history of liver disease, Onset Age: 50 Family history of malignant neoplasm Family history of pancreatic cancer, Onset Age: 76 Grandparent Acute myocardial infarction, Onset Age: 80 Cerebrovascular accident, Onset Age: 80 Mother Family history of pancreatic cancer, Onset Age: 84 Social History Social History Smoking status: Never smoker Alcohol intake: current Drinks per week: 7 Alcohol use details: WINE Substance use: never Substance use type: does not use Lack of Transportation: No Lack of Food: Never True Current Housing: I Have Housing Concerned About Future Housing: No Difficulty Paying Gas/Electric Bills: No Difficulty Paying for Meds: No Currently Unemployed: No Education: Bachelor's Degree Difficulty w/ Childcare or Family Care: No Spiritual care concerns: No Meds Home Medications and Allergies Home Medications ?Medication ?Instructions ?Recorded ?Confirmed ?Type cholecalciferol (vitamin D3) 50 2,000 unit PO DAILY 05/01/21 12/02/24 History mcg (2,000 unit) capsule albuterol sulfate 90 mcg/actuation 2 inh inhalation Q4H PRN shortness 04/18/22 12/02/24 Rx aerosol inhaler (ProAir HFA) of breath or wheezing #8.5 grams atorvastatin 40 mg tablet 40 mg PO DAILY #90 tabs 03/29/24 12/02/24 Rx levothyroxine 100 mcg tablet 100 mcg PO DAILY #90 tabs 03/29/24 12/02/24 Rx colchicine 0.6 mg tablet 0.6 mg PO BID PRN Inflammation 03/30/24 12/02/24 Rx #180 tabs irbesartan 150 1 tablet PO DAILY #90 tabs 06/29/24 12/02/24 Rx mg-hydrochlorothiazide 12.5 mg tablet montelukast 10 mg tablet 10 mg PO QHS #90 tabs 06/29/24 12/02/24 Rx azelastine 137 mcg (0.1 %) nasal 137 mcg intranasal Q12H PRN 11/22/24 12/02/24 History spray allergy symptoms cetirizine 5 mg-pseudoephedrine ER 1 tablet PO BID PRN allergy 11/22/24 12/02/24 History 120 mg tablet,extended symptoms release,12hr (Allergy Relief-D (cetirizine)) fluticasone propionate 50 1 spray intranasal BID PRN allergy 11/22/24 12/02/24 History mcg/actuation nasal symptoms spray,suspension (Flonase Allergy Relief) Allergies Allergy/AdvReac Type Severity Reaction Status Date / Time allopurinol Allergy Intermediate Gastrointestinal Verified 12/02/24 07:54 Upset Penicillins Allergy Intermediate Unknown Verified 12/02/24 07:54 phenol Allergy Intermediate HIVES Verified 12/02/24 07:54 Vital Signs Vital Signs - 24 hr 12/02/24 07:55 Temperature 98.7 F Pulse Rate 79 Respiratory Rate 18 Blood Pressure 142/75 H Pulse Oximetry 96 Oxygen Delivery Room Air Exam Const: General: cooperative and healthy appearing Resp: Effort & Inspection: normal respiratory effort and able to speak in complete sentences Auscultation: clear to auscultation bilaterally Cardio: Rate: regular rate Rhythm: regular rhythm GI: Inspection: normal to inspection GI Palp: No No hepatosplenomegaly present Auscultation: normal bowel sounds Rectal Exam: deferred Skin: General skin exam: normal color Psych: Appearance: grossly normal Mental Status: mental status grossly normal Assessment and Plan Assessment and plan (1) History of colon polyps: Onset Date: 01/25/20 Code(s): Z86.010 - Personal history of colon polyps Status: Acute Assessment and Plan: The patient is deemed a good candidate for the procedure. Consent signed. Will proceed.
[2024-12-02 11:06] VITALS: BP 109/93; PULSE 75; RESP 18; O2SAT 97
[2024-12-02 11:16] VITALS: BP 138/76; PULSE 62; RESP 20; O2SAT 99
[2024-12-02 11:26] VITALS: BP 152/84; PULSE 58; RESP 18; O2SAT 99
--- NOTE | 2024-12-02 11:54 | SUR.PHASEII ---
Continued to monitor patient in recovery. Blood pressure WNL. Pulse would intermittently go to upper 40s. Asymptomatic with no complaints. Dr. Chavo valero.
== END 2024-12-02 11:55 | disposition home or self-care (01) ==
PROVIDERS: PCP Family Medicine; Visit Provider Internal Medicine Gastroenterology
PROC: 0DJD8ZZ Inspection of Lower Intestinal Tract, Via Natural or Artificial Opening Endoscopic (ICD-10-PCS; CPT 45378; principal; 2024-12-02 09:30)
DX: Z12.11 Encounter for screening for malignant neoplasm of colon (principal); D12.5 Benign neoplasm of sigmoid colon; K57.30 Diverticulosis of large intestine without perforation or abscess without bleeding; K64.8 Other hemorrhoids; D12.3 Benign neoplasm of transverse colon; D12.4 Benign neoplasm of descending colon; K63.5 Polyp of colon
CPT/HCPCS: 45385; 45381

== ENCOUNTER 2024-12-09 10:26 | Outpatient (NON) | payer MEDICARE, SELFPAY ==
--- NOTE | 2024-12-02 | S_PTH ---
PATIENT: Cesar Quick LOC: ANHLAB #:[id number] AGE/SX: 74/M ROOM: RE12/09/[address]: Jonny Tolliver MD : 1950 BED: DIS: 12/09/2024 SPEC #: [id number] RECD: 12/05/24 11:28 STATUS: IMMANUEL REQ #: [id number] HUMA: 12/02/24 00:[address]: Jonny Tolliver DEPT: [facility] Surgical RECD BY: Sarika Hummel ENTERED: 12/05/24 11:29 SP TYPE: Surgical OTHR DR: Brian Reveles MD Tissues: A - Colon Polypectomy B - Colon Polypectomy C - Colon Polypectomy D - Colon Polypectomy Procedures: Hematoxylin and Eosin Stain Gross and Microscopic Level 4 Comments: @ Originally on account #[id number] Req #[id number]
--- OUTSIDE RECORDS SUMMARY | 2024-12-05 11:19 | XMS_ITS | Clinical Summary ---
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
--- OUTSIDE RECORDS SUMMARY | 2024-12-05 11:19 | XMS_ITS | Data Portability ---
Author Organization [facility] [employer], Main Office Address [address] [place] [address] Assessment No assessment recorded. Plan of Treatment Reminders Order Date Submit Date Provider Last Modified By Organization Details Last Modified Time Details Appointments None recorded. Lab None recorded. Referral None recorded. Procedures None recorded. Surgeries None recorded. Imaging None recorded. Medication Orders levothyroxi ne 100 mcg tablet 2022 023 [facility]/Pharmacy #[id number], [address] [place], [address], 15:03:40 Patient TargetsNo targets recorded. Patient InstructionsNo instructions recorded. Reason for Referral None Reported. Results Created Date Observation Date Name Description Value Unit Range Abnormal Flag Note LastModifiedBy Organization Detail LastModifiedTime 01/16/20 21 01/18/2021 HEMOG LOBIN A1C hemoglobin A1C 5.5 %_of_ total _HGB <5.7 normal Not Available [employer] [facility] [id number] [place], [place] [address], [address], 01/18/2021 01:10:32 01/16/2001/18/2021 TSH+F REE T4 TSH 1.65 mIU/L 0.40-4 .50 normal Not Available [employer] [address] [place], [address], 01/18/2021 01:10:32 01/16/20 21 01/18/2021 TSH+F REE T4 T4, free 1.3 NG/dL 0.8-1. 8 normal Not Available [employer] [address] [place], [address], 01/18/2021 01:10:32 01/16/20 21 01/18/2021 T3, FREE T3, free 3.0 pg/mL 2.3-4. 2 normal Not Available [address], [address], 01/18/2021 01:10:31 01/16/20 21 01/18/2021 INSUL IN, FREE (BIOA CTIVE ) insulin, free (bioactive) 36.3 uIU/m L 1.5-14 .9 high Insul in level s vary widel y in speci mens taken from non-f astin g indiv idual s. Insul in analo gues may demon strat e non-l inear cross -reac tivit y in this assay . Inter pret resul ts accor dingl y. Not Available [address], [address], 01/18/2021 01:10:31 01/16/20 21 01/18/2021 COMPR EHENS LUDIVINA METAB OLIC PANEL glucose 108 mg/dL 65-99 high Fasti ng refer ence inter debi For someo ne witho ut known diabe sara, a gluco se value betwe en 100 and 125 mg/dL is consi stent with predi abete s and shoul d be confi rmed with a follo w-up test. Not Available [address], [address], 01/18/2021 01:10:31 01/16/20 21 01/18/2021 COMPR EHENS LUDIVINA METAB OLIC PANEL urea nitrogen (BUN) 11 mg/dL 7-25 normal Not Available [address], [address], 01/18/2021 01:10:31 01/16/20 21 01/18/2021 COMPR EHENS LUDIVINA METAB OLIC PANEL creatinine 1.13 mg/dL 0.70-1 .25 normal For patie nts >49 years of age, the refer ence limit for Creat inine is appro ximat loreta 13% highe r for peopl e ident ified as Afric an-Am emmanuel n. Not Available [address], [address], 01/18/2021 01:10:31 01/16/20 21 01/18/2021 COMPR EHENS LUDIVINA METAB OLIC PANEL eGFR non-afr. ivorian 66 mL/mi n/1.7 3m2 > or = 60 normal Not Available [address], [address], 01/18/2021 01:10:31 01/16/20 21 01/18/2021 COMPR EHENS LUDIVINA METAB OLIC PANEL eGFR 77 mL/mi n/1.7 3m2 > or = 60 normal Not Available [address], [address], 01/18/2021 01:10:31 01/16/20 21 01/18/2021 COMPR EHENS LUDIVINA METAB OLIC PANEL BUN/creatini ne ratio not applic able (calc ) 6-22 Not Available [address], [address], 01/18/2021 01:10:31 01/16/20 21 01/18/2021 COMPR EHENS LUDIVINA METAB OLIC PANEL sodium 137 mmol/ L 135-14 6 normal Not Available [address], [address], 01/18/2021 01:10:31 01/16/20 21 01/18/2021 COMPR EHENS LUDIVINA METAB OLIC PANEL potassium 3.8 mmol/ L 3.5-5. 3 normal Not Available [address], [address], 01/18/2021 01:10:31 01/16/20 21 01/18/2021 COMPR EHENS LUDIVINA METAB OLIC PANEL chloride 101 mmol/ L 98-110 normal Not Available [address], [address], 01/18/2021 01:10:31 01/16/20 21 01/18/2021 COMPR EHENS LUDIVINA METAB OLIC PANEL carbon dioxide 29 mmol/ L 20-32 normal Not Available [address], [address], 01/18/2021 01:10:31 01/16/20 21 01/18/2021 COMPR EHENS LUDIVINA METAB OLIC PANEL calcium 9.4 mg/dL 8.6-10 .3 normal Not Available [address], [address], 01/18/2021 01:10:31 01/16/20 21 01/18/2021 COMPR EHENS LUDIVINA METAB OLIC PANEL protein, total 6.2 g/dL 6.1-8. 1 normal Not Available [address], [address], 01/18/2021 01:10:31 01/16/20 21 01/18/2021 COMPR EHENS LUDIVINA METAB OLIC PANEL albumin 4.0 g/dL 3.6-5. 1 normal Not Available [address], [address], 01/18/2021 01:10:31 01/16/20 21 01/18/2021 COMPR EHENS LUDIVINA METAB OLIC PANEL globulin 2.2 g/dL_ (calc ) 1.9-3. 7 normal Not Available [address], [address], 01/18/2021 01:10:31 01/16/20 21 01/18/2021 COMPR EHENS LUDIVINA METAB OLIC PANEL albumin/glob ulin ratio 1.8 (calc ) 1.0-2. 5 normal Not Available [address], [place], [address], 01/18/2021 01:10:31 01/16/20 21 01/18/2021 COMPR EHENS LUDIVINA METAB OLIC PANEL bilirubin, total 0.9 mg/dL 0.2-1. 2 normal Not Available [address], [address], 01/18/2021 01:10:31 01/16/20 21 01/18/2021 COMPR EHENS LUDIVINA METAB OLIC PANEL alkaline phosphatase 78 U/L 35-144 normal Not Available [address], [address], 01/18/2021 01:10:31 01/16/20 21 01/18/2021 COMPR EHENS LUDIVINA METAB OLIC PANEL AST 32 U/L 10-35 normal Not Available [address], [address], 01/18/2021 01:10:31 01/16/20 21 01/18/2021 COMPR EHENS LUDIVINA METAB OLIC PANEL ALT 37 U/L 9-46 normal Not Available [address], [address], 01/18/2021 01:10:31 01/16/20 21 01/18/2021 LIPID PANEL , STAND MARIA ESTHER cholesterol, total 129 mg/dL <200 normal Not Available [address], [address], 01/18/2021 01:10:30 01/16/20 21 01/18/2021 LIPID PANEL , STAND MARIA ESTHER HDL cholesterol 54 mg/dL > or = 40 normal Not Available [address], [address], 01/18/2021 01:10:30 01/16/20 21 01/18/2021 LIPID PANEL , STAND MARIA ESTHER triglyceride s 121 mg/dL <150 normal Not Available [facility]. [place] [address] [place], [address], 01/18/2021 01:10:30 01/16/20 21 01/18/2021 LIPID PANEL , STAND MARIA ESTHER LDL-choleste rol 55 mg/dL _(marva c) normal Refer ence range : <100 Brain able range <100 mg/dL for prima ry preve ntion ; <70 mg/dL for patie nts with CHD or diabe tic patie nts with > or = 2 CHD risk facto rs. LDL-C is now calcu lated using the Allyson n-Hop kins calcu concepcion n, which is a valid ated novel danilo curtis accur aceugenia than the Fried antonio equat ion in the estim ation of LDL-C . Allyson alfaro SS et al. STEPHANIE. 2013; 310(1 9): 2061- 2068 (http ://ed ucati on.Qu marquiseAeryon Labs. com/f aq/FA Q164) Not Available [employer] [facility] [address] [address] [place], [address], 01/18/2021 01:10:30 01/16/20 21 01/18/2021 LIPID PANEL , STAND MARIA ESTHER chol/HDLC ratio 2.4 (calc ) <5.0 normal Not Available [employer] [facility] [address] [place], [address], 01/18/2021 01:10:30 01/16/20 21 01/18/2021 LIPID PANEL , STAND MARIA ESTHER non HDL cholesterol 75 mg/dL _(marva c) <130 normal For patie nts with diabe sara plus 1 major ASCVD risk facto r, treat ing to a non-H DL-C goal of <100 mg/dL (LDL- C of <70 mg/dL ) is carli montano optio n. Not Available [facility] [address] [place], [address], 01/18/2021 01:10:30 01/16/20 21 01/18/2021 TESTO STERO NE, FREE, BIOAV AILAB LE AND TOTAL , MS sex hormone binding globulin 44.1 nmol/ L 22-77 Not Available [address], [address], 01/18/2021 01:10:30 01/16/20 21 01/18/2021 TESTO STERO NE, FREE, BIOAV AILAB LE AND TOTAL , MS albumin 4.2 g/dL 3.6-5. 1 Not Available [address], [address], 01/18/2021 01:10:30 01/16/2001/18/2021 TESTO STERO NE, FREE, BIOAV AILAB LE AND TOTAL , MS testosterone , free 48.2 pg/mL 46.0-2 24.0 Not Available [address], [address], 01/18/2021 01:10:30 01/16/20 21 01/18/2021 TESTO STERO NE, FREE, BIOAV AILAB LE AND TOTAL , MS testosterone ,bioavailabl e 92.8 NG/dL 110.0- 575.0 low Not Available [address], [address], 01/18/2021 01:10:30 01/16/2001/18/2021 TESTO STERO NE, FREE, BIOAV AILAB LE AND TOTAL , MS testosterone , total, MS 457 NG/dL 250-11 00 For addit ional infor chioma vick e refer to https ://ed ucati on.qu estdi sgTake Me Home Taxis. com/f aq/FA Q165 (This link is being provi ded for infor andre nal/e ducat ional purpo ses only. ) (Note ) This test was devel oped and its lila tical perfo rmanc e toñito cteri stics have been deter mined by [employer]. It has not been clear ed or appro cesar by the FDA. This assay has been valid ated pursu ant to the CLIA regul ation s and is used for clini marva purpo ses. BALDEMAR med fusio n [address] [facility] [address] [place] [address] [phone] Devaughn french MD Not Available [employer] [address] [address] [place], [address], 01/18/2021 01:10:30 01/16/20 21 01/18/2021 IRON, TIBC AND STEPHANIE TIN PANEL iron, total 119 mcg/d L 50-180 normal Not Available [employer] [address] [address] [place], [address], 01/18/2021 01:10:30 01/16/20 21 01/18/2021 IRON, TIBC AND STEPHANIE TIN PANEL iron binding capacity 265 mcg/d L_(ca lc) 250-42 5 normal Not Available [employer] [address] [address] [place], [address], 01/18/2021 01:10:30 01/16/20 21 01/18/2021 IRON, TIBC AND STEPHANIE TIN PANEL % saturation 45 %_(ca lc) 20-48 normal Not Available [employer] [address] [address] [place], [address], 01/18/2021 01:10:30 01/16/20 21 01/18/2021 IRON, TIBC AND STEPHANIE TIN PANEL ferritin 298 NG/mL 24-380 normal Not Available [employer] [address] [address] [place], [address], 01/18/2021 01:10:30 08/27/19 22 08/31/2021 HEMOG LOBIN A1C hemoglobin A1C 5.3 %_of_ total _HGB <5.7 normal For the purpo se of jung anaya for the prese nce of diabe sara: <5.7% Consi stent with the absen ce of diabe sara 5.7-6 .4% Consi stent with incre ased risk for diabe sara (pred iabet es) > or =6.5% Consi stent with diabe sara This assay resul t is consi stent with a decre ased risk of diabe sara. Curre ntly, no conse nsus exist s regdestin pittman use of hemog lobin A1c for diagn osis of diabe sara in child hannah. Accor ding to Ameri can Diabe sara Assoc iatio n (ADA) guide lines , hemog lobin A1c <7.0% repre sents optim al contr ol in non-p regna nt diabe tic patie nts. Diffe rent metri cs may apply to speci fic patie nt popul ation s. Stand ards of Medic al Care in Diabe sara(A DA). Not Available [employer] [address], [address], 08/31/2021 01:46:21 08/27/19 22 08/31/2021 HEMOG LOBIN A1C copy(ies) sent to: [facility] [address] [facility] [place] [address] Not Available [employer] [address], [address], 08/31/2021 01:46:21 08/27/19 22 08/31/2021 TSH+F REE T4 TSH 1.32 mIU/L 0.40-4 .50 normal Not Available [employer] [address] [place], [address], 08/31/2021 01:46:21 08/27/19 22 08/31/2021 TSH+F REE T4 T4, free 1.2 NG/dL 0.8-1. 8 normal Not Available [employer] [facility] [address], [address], 08/31/2021 01:46:21 08/27/19 22 08/31/2021 TSH+F REE T4 copy(ies) sent to: [facility] AL GRP ADMN [address] [place] [address] Not Available [address], [address], 08/31/2021 01:46:21 08/27/19 22 08/31/2021 T3, FREE T3, free 3.1 pg/mL 2.3-4. 2 normal Not Available [address], [address], 08/31/2021 01:46:20 08/27/19 22 08/31/2021 T3, FREE copy(ies) sent to: [facility] MEDIC AL [facility] AL GR[facility] ADMN [address] [place] [address] Not Available [address], [address], 08/31/2021 01:46:20 08/27/19 22 08/31/2021 INSUL IN, FREE (BIOA CTIVE ) insulin, free (bioactive) 8.6 uIU/m L 1.5-14 .9 Insul in level s vary widel y in speci mens taken from non-f astin g indiv idual s. Insul in analo gues may demon strat e non-l inear cross -reac tivit y in this assay . Inter pret resul ts accor dingl y. Not Available [address], [address], 08/31/2021 01:46:20 08/27/19 22 08/31/2021 INSUL IN, FREE (BIOA CTIVE ) copy(ies) sent to: [facility] S[facility] JONI [facility] AL GRP ADMN [address] [place] [address] Not Available [address], [address], 08/31/2021 01:46:20 08/27/19 22 08/31/2021 COMPR EHENS LUDIVINA METAB OLIC PANEL glucose 93 mg/dL 65-99 normal Fasti ng refer ence inter debi Not Available [address], [address], 08/31/2021 01:46:19 08/27/19 22 08/31/2021 COMPR EHENS LUDIVINA METAB OLIC PANEL urea nitrogen (BUN) 12 mg/dL 7-25 normal Not Available [address], [address], 08/31/2021 01:46:19 08/27/19 22 08/31/2021 COMPR EHENS LUDIVINA METAB OLIC PANEL BUN/creatini ne ratio not applic able (calc ) 6-22 Not Available [address], [address], 08/31/2021 01:46:19 08/27/19 22 08/31/2021 COMPR EHENS LUDIVINA METAB OLIC PANEL creatinine 1.01 mg/dL 0.70-1 .25 normal For patie nts >49 years of age, the refer ence limit for Creat inine is appro ximat loreta 13% highe r for peopl e ident ified as Afric an-Am emmanuel n. Not Available [address], [address], 08/31/2021 01:46:19 08/27/19 22 08/31/2021 COMPR EHENS LUDIVINA METAB OLIC PANEL eGFR non-afr. ivorian 76 mL/mi n/1.7 3m2 > or = 60 normal Not Available [address], [address], 08/31/2021 01:46:19 08/27/19 22 08/31/2021 COMPR EHENS LUDIVINA METAB OLIC PANEL eGFR 88 mL/mi n/1.7 3m2 > or = 60 normal Not Available [address], [address], 08/31/2021 01:46:19 08/27/19 22 08/31/2021 COMPR EHENS LUDIVINA METAB OLIC PANEL sodium 134 mmol/ L 135-14 6 low Not Available [address], [address], 08/31/2021 01:46:19 08/27/19 22 08/31/2021 COMPR EHENS LUDIVINA METAB OLIC PANEL potassium 4.5 mmol/ L 3.5-5. 3 normal Not Available [address], [address], 08/31/2021 01:46:19 08/27/19 22 08/31/2021 COMPR EHENS LUDIVINA METAB OLIC PANEL chloride 98 mmol/ L 98-110 normal Not Available [address], [address], 08/31/2021 01:46:19 08/27/19 22 08/31/2021 COMPR EHENS LUDIVINA METAB OLIC PANEL carbon dioxide 28 mmol/ L 20-32 normal Not Available [address], [address], 08/31/2021 01:46:19 08/27/19 22 08/31/2021 COMPR EHENS LUDIVINA METAB OLIC PANEL calcium 9.2 mg/dL 8.6-10 .3 normal Not Available [address], [address], 08/31/2021 01:46:19 08/27/19 22 08/31/2021 COMPR EHENS LUDIVINA METAB OLIC PANEL protein, total 6.6 g/dL 6.1-8. 1 normal Not Available [address], [address], 08/31/2021 01:46:19 08/27/19 22 08/31/2021 COMPR EHENS LUDIVINA METAB OLIC PANEL albumin 4.4 g/dL 3.6-5. 1 normal Not Available [address], [address], 08/31/2021 01:46:19 08/27/19 22 08/31/2021 COMPR EHENS LUDIVINA METAB OLIC PANEL globulin 2.2 g/dL_ (calc ) 1.9-3. 7 normal Not Available [address], [address], 08/31/2021 01:46:19 08/27/19 22 08/31/2021 COMPR EHENS LUDIVINA METAB OLIC PANEL albumin/glob ulin ratio 2.0 (calc ) 1.0-2. 5 normal Not Available [address], [address], 08/31/2021 01:46:19 08/27/19 22 08/31/2021 COMPR EHENS LUDIVINA METAB OLIC PANEL bilirubin, total 0.8 mg/dL 0.2-1. 2 normal Not Available [address], [address], 08/31/2021 01:46:19 08/27/19 22 08/31/2021 COMPR EHENS LUDIVINA METAB OLIC PANEL alkaline phosphatase 98 U/L 35-144 normal Not Available [address], [address], 08/31/2021 01:46:19 08/27/19 22 08/31/2021 COMPR EHENS LUDIVINA METAB OLIC PANEL AST 29 U/L 10-35 normal Not Available [address], [address], 08/31/2021 01:46:19 08/27/19 22 08/31/2021 COMPR EHENS LUDIVINA METAB OLIC PANEL ALT 33 U/L 9-46 normal Not Available [address] [address] [place], [address], 08/31/2021 01:46:19 08/27/19 22 08/31/2021 COMPR EHENS LUDIVINA METAB OLIC PANEL copy(ies) sent to: [facility] [place] [facility] [address] [place] [address] Not Available [address] [address] [place], [address], 08/31/2021 01:46:19 08/27/19 22 08/31/2021 LIPID PANEL , STAND MARIA ESTHER chol/HDLC ratio 2.2 (calc ) <5.0 normal Not Available [address] [place], [address], 08/31/2021 01:46:16 08/27/19 22 08/31/2021 LIPID PANEL , STAND MARIA ESTHER cholesterol, total 145 mg/dL <200 normal Not Available [address] [address] [place], [address], 08/31/2021 01:46:16 08/27/19 22 08/31/2021 LIPID PANEL , STAND MARIA ESTHER HDL cholesterol 66 mg/dL > or = 40 normal Not Available [address] [address] [place], [address], 08/31/2021 01:46:16 08/27/19 22 08/31/2021 LIPID PANEL , STAND MARIA ESTHER triglyceride s 142 mg/dL <150 normal Not Available [address] [place], [address], 08/31/2021 01:46:16 08/27/19 22 08/31/2021 LIPID PANEL , STAND AMRIA ESTHER LDL-choleste rol 56 mg/dL _(marva c) normal Refer ence range : <100 Brain able range <100 mg/dL for prima ry preve ntion ; <70 mg/dL for patie nts with CHD or diabe tic patie nts with > or = 2 CHD risk facto rs. LDL-C is now calcu lated using the Allyson n-Hop kins meron javier n, which is a valid ated novel maileo brendan highte r accur acy than the Fried antonio equat ion in the estim ation of LDL-C . Allyson alfaro SS et al. STEPHANIE. 2013; 310(1 9): 2061- 2068 (http ://ed ucati on.Qu estDi Weichaishi.coms. com/f aq/FA Q164) Not Available [employer] [facility] [address] [place], [address], 08/31/2021 01:46:16 08/27/19 22 08/31/2021 LIPID PANEL , STAND MARIA ESTHER non HDL cholesterol 79 mg/dL _(marva c) <130 normal For patie nts with diabe sara plus 1 major ASCVD risk facto r, treat ing to a non-H DL-C goal of <100 mg/dL (LDL- C of <70 mg/dL ) is consi dered a thera peuti c optio n. Not Available [employer] [address] [address], [place], [address], 08/31/2021 01:46:16 08/27/19 22 08/31/2021 LIPID PANEL , STAND MARIA ESTHER copy(ies) sent to: [facility] [place] [facility] [address] [place] [address] Not Available [employer] [address] [address], [place], [address], 08/31/2021 01:46:16 01/09/20 22 01/09/2022 HEMOG LOBIN A1C hemoglobin A1C 5.3 %_of_ total _HGB <5.7 normal For the purpo se of scree jaclyn for the prese nce of diabe sara: <5.7% Consi stent with the absen ce of diabe sara 5.7-6 .4% Consi stent with incre ased risk for diabe sara (pred iabet es) > or =6.5% Consi stent with diabe sara This assay resul t is consi stent with a decre ased risk of diabe sara. Curre ntly, no conse nsus exist s regar zain use of hemog lobin A1c for diagn osis of diabe sara in child hannah. Accor ding to Ameri can Diabe sara Assoc iatio n (ADA) guide lines , hemog lobin A1c <7.0% repre sents optim al contr ol in non-p regna nt diabe tic patie nts. Diffe rent metri cs may apply to speci fic patie nt popul ation s. Stand ards of Medic al Care in Diabe sara(A DA). Not Available [address] [address] [place], [address], 01/09/2022 05:32:04 01/09/20 22 01/09/2022 TSH+F REE T4 TSH 2.41 mIU/L 0.40-4 .50 normal Not Available [address] [address] [place], [address], 01/09/2022 05:32:04 01/09/20 22 01/09/2022 TSH+F REE T4 T4, free 1.2 NG/dL 0.8-1. 8 normal Not Available [employer] [address] [address] [place], [address], 01/09/2022 05:32:04 01/09/20 22 01/09/2022 T3, FREE T3, free 3.4 pg/mL 2.3-4. 2 normal Not Available [facility] [address] [address] [place], [address], 01/09/2022 05:32:03 01/09/20 22 01/09/2022 VITAM IN B12/F OLATE , SERUM PANEL vitamin B12 913 pg/mL 200-11 00 normal Not Available [employer] [address] [address] [place], [address], 01/09/2022 05:32:03 01/09/20 22 01/09/2022 VITAM IN B12/F OLATE , SERUM PANEL folate, serum 18.3 NG/mL normal Refer ence Range Low: <3.4 Borde rline : 3.4-5 .4 Angelita l: >5.4 Not Available [address], [address], 01/09/2022 05:32:03 01/09/20 22 01/09/2022 COMPR EHENS LUDIVINA METAB OLIC PANEL potassium 4.2 mmol/ L 3.5-5. 3 normal Not Available [address], [address], 01/09/2022 05:32:02 01/09/20 22 01/09/2022 COMPR EHENS LUDIVINA METAB OLIC PANEL glucose 115 mg/dL 65-99 high Fasti ng refer ence inter debi For someo ne witho ut known diabe sara, a gluco se value betwe en 100 and 125 mg/dL is consi stent with predi abete s and shoul d be confi rmed with a follo w-up test. Not Available [address], [address], 01/09/2022 05:32:02 01/09/20 22 01/09/2022 COMPR EHENS LUDIVINA METAB OLIC PANEL urea nitrogen (BUN) 16 mg/dL 7-25 normal Not Available [address], [address], 01/09/2022 05:32:02 01/09/20 22 01/09/2022 COMPR EHENS LUDIVINA METAB OLIC PANEL creatinine 1.16 mg/dL 0.70-1 .35 normal Not Available [address], [address], 01/09/2022 05:32:02 01/09/20 22 01/09/2022 COMPR EHENS LUDIIVNA METAB OLIC PANEL eGFR 68 mL/mi n/1.7 3m2 > or = 60 normal The eGFR is based on the CKD-E PI 2020 equat ion. To calcu late the new eGFR from a previ ous Creat inine or Cysta tin C resul t, go to https ://vir[place] solis.o paola/pr ofess ional s/ kdoqi /gfr% 5Fcal culat or Not Available [address] [address] [place], [address], 01/09/2022 05:32:02 01/09/20 22 01/09/2022 COMPR EHENS LUDIVINA METAB OLIC PANEL BUN/creatini ne ratio not applic able (calc ) 6-22 Not Available [address], [address], 01/09/2022 05:32:02 01/09/20 22 01/09/2022 COMPR EHENS LUDIVINA METAB OLIC PANEL sodium 137 mmol/ L 135-14 6 normal Not Available [address], [address], 01/09/2022 05:32:02 01/09/20 22 01/09/2022 COMPR EHENS LUDIVINA METAB OLIC PANEL chloride 100 mmol/ L 98-110 normal Not Available [address], [address], 01/09/2022 05:32:02 01/09/20 22 01/09/2022 COMPR EHENS LUDIVINA METAB OLIC PANEL carbon dioxide 27 mmol/ L 20-32 normal Not Available [employer] [address], [address], 01/09/2022 05:32:02 01/09/20 22 01/09/2022 COMPR EHENS LUDIVINA METAB OLIC PANEL calcium 9.6 mg/dL 8.6-10 .3 normal Not Available [employer] [address] [place], [address], 01/09/2022 05:32:02 01/09/20 22 01/09/2022 COMPR EHENS [facility] METAB OLIC PANEL protein, total 6.6 g/dL 6.1-8. 1 normal Not Available [address], [address], 01/09/2022 05:32:02 01/09/20 22 01/09/2022 COMPR EHENS [facility] METAB OLIC PANEL albumin 4.5 g/dL 3.6-5. 1 normal Not Available [address], [address], 01/09/2022 05:32:02 01/09/20 22 01/09/2022 COMPR EHENS [facility] METAB OLIC PANEL globulin 2.1 g/dL_ (calc ) 1.9-3. 7 normal Not Available [address], [address], 01/09/2022 05:32:02 01/09/20 22 01/09/2022 COMPR EHENS [facility] METAB OLIC PANEL albumin/glob ulin ratio 2.1 (calc ) 1.0-2. 5 normal Not Available [address], [address], 01/09/2022 05:32:02 01/09/20 22 01/09/2022 COMPR EHENS [facility] METAB OLIC PANEL bilirubin, total 0.6 mg/dL 0.2-1. 2 normal Not Available [address], [address], 01/09/2022 05:32:02 01/09/20 22 01/09/2022 COMPR EHENS [facility] METAB OLIC PANEL alkaline phosphatase 96 U/L 35-144 normal Not Available [address], [address], 01/09/2022 05:32:02 01/09/20 22 01/09/2022 COMPR EHENS [facility] METAB OLIC PANEL AST 36 U/L 10-35 high Not Available [address], [address], 01/09/2022 05:32:02 01/09/20 22 01/09/2022 COMPR EHENS [facility] METAB OLIC PANEL ALT 39 U/L 9-46 normal Not Available [address], [address], 01/09/2022 05:32:02 10/01/19 23 10/01/2022 COMPR EHENS [facility] METAB OLIC PANEL glucose 106 mg/dL 65-99 high Fasti ng refer ence inter debi For someo ne witho ut known diabe sara, a gluco se value betwe en 100 and 125 mg/dL is consi stent with predi abete s and shoul d be confi rmed with a follo w-up test. Not Available [address] [address] [place], [address], 10/01/2022 11:57:04 10/01/19 23 10/01/2022 COMPR EHENS [facility] METAB OLIC PANEL urea nitrogen (BUN) 14 mg/dL 7-25 normal Not Available [address], [address], 10/01/2022 11:57:04 10/01/19 23 10/01/2022 COMPR EHENS [facility] METAB OLIC PANEL creatinine 1.13 mg/dL 0.70-1 .35 normal Not Available [address], [address], 10/01/2022 11:57:04 10/01/19 23 10/01/2022 COMPR EHENS [facility] METAB OLIC PANEL eGFR 70 mL/mi n/1.7 3m2 > or = 60 normal The eGFR is based on the CKD-E PI 2020 equat ion. To calcu late the new eGFR from a previ ous Creat inine or Cysta tin C resul t, go to https :[email or web address] seth.alize solis.o paola/pr ofess ional s/ kdoqi /gfr% 5Fcal culat or Not Available [address], [address], 10/01/2022 11:57:04 10/01/19 23 10/01/2022 COMPR EHENS LUDIVINA METAB OLIC PANEL BUN/creatini ne ratio NOT APPLIC ABLE (calc ) 6-22 Not Available [address], [address], 10/01/2022 11:57:04 10/01/19 23 10/01/2022 COMPR EHENS LUDIVINA METAB OLIC PANEL sodium 134 mmol/ L 135-14 6 low Not Available [address], [address], 10/01/2022 11:57:04 10/01/19 23 10/01/2022 COMPR EHENS LUDIVINA METAB OLIC PANEL potassium 4.1 mmol/ L 3.5-5. 3 normal Not Available [address], [address], 10/01/2022 11:57:04 10/01/19 23 10/01/2022 COMPR EHENS LUDIVINA METAB OLIC PANEL chloride 100 mmol/ L 98-110 normal Not Available [address], [address], 10/01/2022 11:57:04 10/01/19 23 10/01/2022 COMPR EHENS LUDIVINA METAB OLIC PANEL carbon dioxide 26 mmol/ L 20-32 normal Not Available [address], [address], 10/01/2022 11:57:04 10/01/19 23 10/01/2022 COMPR EHENS LUDIVINA METAB OLIC PANEL calcium 9.4 mg/dL 8.6-10 .3 normal Not Available [address] [place], [address], 10/01/2022 11:57:04 10/01/19 23 10/01/2022 COMPR EHENS LUDIVINA METAB OLIC PANEL protein, total 6.3 g/dL 6.1-8. 1 normal Not Available [address], [address], 10/01/2022 11:57:04 10/01/19 23 10/01/2022 COMPR EHENS LUDIVINA METAB OLIC PANEL albumin 4.2 g/dL 3.6-5. 1 normal Not Available [address], [address], 10/01/2022 11:57:04 10/01/19 23 10/01/2022 COMPR EHENS LUDIVINA METAB OLIC PANEL globulin 2.1 g/dL_ (calc ) 1.9-3. 7 normal Not Available [address], [address], 10/01/2022 11:57:04 10/01/19 23 10/01/2022 COMPR EHENS LUDIVINA METAB OLIC PANEL albumin/glob ulin ratio 2.0 (calc ) 1.0-2. 5 normal Not Available [address], [address], 10/01/2022 11:57:04 10/01/19 23 10/01/2022 COMPR EHENS LUDIVINA METAB OLIC PANEL bilirubin, total 1.2 mg/dL 0.2-1. 2 normal Not Available [address], [address], 10/01/2022 11:57:04 10/01/19 23 10/01/2022 COMPR EHENS LUDIVINA METAB OLIC PANEL alkaline phosphatase 75 U/L 35-144 normal Not Available [address] [address] [place], [address], 10/01/2022 11:57:04 10/01/19 23 10/01/2022 COMPR EHENS LUDIVINA METAB OLIC PANEL AST 23 U/L 10-35 normal Not Available [address], [address], 10/01/2022 11:57:04 10/01/19 23 10/01/2022 COMPR EHENS LUDIVINA METAB OLIC PANEL ALT 26 U/L 9-46 normal Not Available [address], [address], 10/01/2022 11:57:04 10/01/1910/01/2022 INSUL IN insulin 17.9 uIU/m L normal Refer ence Range < or = 18.4 Risk: Optim al < or = 18.4 Moder ate NA High >18.4 Adult cardi ovasc ular event risk categ ory cut point s (opti mal, moder ate, high) are based on Insul in Refer ence Inter debi studi es perfo rmed at [facility] in 2021. Not Available [employer] [address], [address], 10/01/2022 11:57:05 10/01/1910/01/2022 VITAM IN B12/F OLATE , SERUM PANEL vitamin B12 744 pg/mL 200-11 00 normal Not Available [employer] [address], [address], 10/01/2022 11:57:09 10/01/1910/01/2022 VITAM IN B12/F OLATE , SERUM PANEL folate, serum 21.0 NG/mL normal Refer ence Range Low: <3.4 Borde rline : 3.4-5 .4 Angelita l: >5.4 Not Available [employer] [address], [address], 10/01/2022 11:57:09 10/01/19 23 10/01/2022 T3, FREE T3, free 3.2 pg/mL 2.3-4. 2 normal Not Available [facility] [address] [place], [address], 10/01/2022 11:57:09 10/01/19 23 10/01/2022 TSH+F REE T4 TSH 2.21 mIU/L 0.40-4 .50 normal Not Available [facility] [address] [address] [place], [address], 10/01/2022 11:57:10 10/01/19 23 10/01/2022 TSH+F REE T4 T4, free 1.2 NG/dL 0.8-1. 8 normal Not Available [facility] [address] [address] [place], [address], 10/01/2022 11:57:10 10/01/1910/01/2022 HEMOG LOBIN A1C hemoglobin A1C 5.0 %_of_ total _HGB <5.7 normal For the purpo se of jung anaya for the prese nce of diabe sara: <5.7% Consi stent with the absen ce of diabe sara 5.7-6 .4% Consi stent with incre ased risk for diabe sara (pred iabet es) > or =6.5% Consi stent with diabe sara This assay resul t is consi stent with a decre ased risk of diabe sara. Curre ntly, no conse nsus exist s reina pittman use of hemog lobin A1c for diagn osis of diabe sara in child hannah. Accor ding to Ameri can Diabe sara Assoc iatio n (ADA) guide lines , hemog lobin A1c <7.0% repre sents optim al contr ol in non-p regna nt diabe tic patie nts. Diffe rent ri cs may apply to speci fic patie nt popul ation s. Stand ards of Medic al Care in Diabe sara(A DA). Not Available [facility] [address] [place], [address], 10/01/2022 11:57:10 Result Notes None recorded. Problems Name Problem SNOMED Code Status Onset Date Resolution Date Notes Provider Name and Address Organization Details Recorded Time Hypothyroidism 49768212 Active 2022 Radha Goodrich MD [address] [facility] [address], [place], [address], [facility] [employer] 3 15:02:46 Impaired fasting glycemia 110724550 Active 2022 Radha Goodrich MD [address], [address], [place], [address], [employer] [facility] [employer] 3 15:03:06 Problem Notes None recorded. Procedures Surgical History Date Name Laterality Status Provider Name and Address Organization Details Recorded Time Knee arthroscopy/s urgery completed Not Available [facility] 05/07/2022 23:29:06 Nasal sinus therapy completed Not Available [facility] 05/07/2022 23:29:06 Imaging Results None recorded. Procedure Notes None recorded. Medical Equipment None Reported. Allergies Allergen ID Allergen Name Allergen Category Reaction Reaction Severity Criticality Documentation Date Start Date Code Code System Note Provider Name and Address Organization Details Recorded Time 14278 Product containin g penicilli n (product) medicatio n Not available Not available Not available 05/07/2022 00872 8001 SNOMED Not Available [facility] 3 23:30:53 Medications Name Sig Start Date Stop Date Status Note LastModified by Organization Details LastModified Time cetirizine 5 mg-pseudoep hedrine ER 120 mg tablet,exte nded release,12h r TAKE 1 TABLET BY MOUTH EVERY 12 HOURS NEEDED FOR ALLERGIES active Not Available Not Available No t Available atorvastati n 40 mg tablet TAKE 1 TABLET BY MOUTH EVERY DAY active Not Available Not Available No t Available irbesartan 150 mg-hydrochl orothiazide 12.5 mg tablet TAKE 1 TABLET BY MOUTH EVERY DAY active Not Available Not Available No t Available azithromyci n 250 mg tablet TAKE 2 TABLETS BY MOUTH TODAY, THEN TAKE 1 TABLET DAILY FOR 4 DAYS active Not Available Not Available No t Available meloxicam 15 mg tablet TAKE 1 TABLET BY MOUTH EVERY DAY NEEDED FOR PAIN. active Not Available Not Available No t Available prednisone 20 mg tablet TAKE 1 TABLET BY MOUTH ONCE DAILY. HOLD NSAIDS WHILE ON PREDNISON E active Not Available Not Available No t Available methylpredn isolone 4 mg tablet TAKE 6 TABLETS ON DAY 1 DIRECTED ON PACKAGE AND DECREASE BY 1 TAB EACH DAY FOR A TOTAL OF 6 DAYS active Not Available Not Available No t Available metronidazo le 500 mg tablet active Not Available Not Available Not Available ciprofloxac in 500 mg tablet 02/03 completed Not Available Not Available Not Available omeprazole 40 mg capsule,del ayed release TAKE 1 CAPSULE BY MOUTH EVERY DAY 30 MINUTES BEFORE MORNING MEAL FOR 90 DAYS active Not Available Not Available No t Available levothyroxi ne 100 mcg tablet TAKE 1 TABLET BY MOUTH EVERY DAY active Not Available Not Available No t Available montelukast 10 mg tablet TAKE 1 TABLET BY MOUTH EVERYDAY AT BEDTIME active Not Available Not Available No t Available cyanocobala min (vit B-12) 1,[address] 1 TABLET EVERY DAY BY SUBLINGUA L ROUTE IN THE MORNING FOR 90 DAYS. active Not Available Not Available No t Available azelastine 137 mcg (0.1 %) nasal spray USE 1 SPRAY(S) IN EACH NOSTRIL EVERY 12 HOURS active Not Available Not Available No t Available levofloxaci n 500 mg tablet TAKE 1 TABLET BY MOUTH EVERY DAY active Not Available Not Available No t Available albuterol sulfate HFA 90 mcg/actuati on aerosol inhaler 2 INH INHALED EVERY 4 HOURS NEEDED FOR SHORTNESS OF BREATH OR WHEEZING active Not Available Not Available No t Available colchicine 0.6 mg tablet TAKE 1 TABLET BY MOUTH TWICE A DAY NEEDED FOR INFLAMMAT ION active Not Available Not Available No t Available fluocinonid e 0.05 % topical cream APPLY 1 APPLICATI ON ON THE SKIN EXTERNALL Y ONCE DAILY active Not Available Not Available No t Available fluticasone propionate 50 mcg/actuati on nasal spray,suspe nsion USE 1 SPRAY INTRANASA LLY TWICE A DAY ADMINISTE R INTO EACH NOSTRIL active Not Available Not Available No t Available doxycycline hyclate 100 mg tablet TAKE 1 TABLET BY MOUTH TWICE A DAY active Not Available Not Available No t Available losartan 100 mg-hydrochl orothiazide 12.5 mg tablet 12/25 completed Not Available Not Available Not Available colchicine 2020 active Not Available Not Available Not Avai lable Suprep Bowel Prep Kit 17.5 gram-3.13 gram-1.6 gram oral solution active Not Available Not Available Not Available Breo Ellipta 100 mcg-25 mcg/dose powder for inhalation INHALE 1 PUFF DAILY active Not Available Not Available No t Available Vitals Date Recorded Body mass index (BMI) Body height Oxygen saturation Oxygen saturation in Arterial blood by Pulse oximetry Heart rate Body temperature Body weight Systolic And Diastolic Provider Name and Address Organization Details Last Updated DateTime 2 38.6 kg/m2 172.72 cm 96 % 96 % 85 /min 98 [degF] 194398. 46 g 140/82 mm[Hg] Not Available [facility] 3 23:29:36 Date Recorded Body height Body mass index (BMI) Body weight Heart rate Body temperature Systolic And Diastolic Provider Name and Address Organization Details Last Updated DateTime 3 172.72 cm 35.8 kg/m2 892371 g 83 /min 97.9 [degF] 130/82 mm[Hg] Stephanie Mayers [place] [facility] [place] [facility] 3 14:55:55 Date Recorded Body mass index (BMI) Body height Oxygen saturation Oxygen saturation in Arterial blood by Pulse oximetry Heart rate Body temperature Body weight Systolic And Diastolic Provider Name and Address Organization Details Last Updated DateTime 1 38.9 kg/m2 172.72 cm 96 % 96 % 89 /min 98.6 [degF] 815663. 65 g 146/80 mm[Hg] Not Available [facility] 3 23:29:36 Date Recorded Body mass index (BMI) Body height Oxygen saturation Oxygen saturation in Arterial blood by Pulse oximetry Heart rate Body temperature Body weight Systolic And Diastolic Provider Name and Address Organization Details Last Updated DateTime 2 39.1 kg/m2 172.72 cm 95 % 95 % 80 /min 97.9 [degF] 311360. 24 g 160/80 mm[Hg] Not Available [facility] 3 23:29:36 Date Recorded Body mass index (BMI) Body height Oxygen saturation Oxygen saturation in Arterial blood by Pulse oximetry Heart rate Body temperature Body weight Systolic And Diastolic Provider Name and Address Organization Details Last Updated DateTime 1 38.2 kg/m2 172.72 cm 97 % 97 % 71 /min 98 [degF] 152527. 68 g 144/80 mm[Hg] Not Available [facility] 23:29:36 Social History Question Answer Notes LastModified by Organizat ion Details LastModified Time Tobacco Smoking Status Never Smoker Not Available [facility] 05/07/2022 23:28:39 What Is Your Level Of Caffeine Consumption? Heavy [id number] Information not available 05/07/2022 What Is Your Relationship Status? [id number] Information not available 05/07/2022 Has Tobacco Cessation Counseling Been Provided? No [id number] Information not available 05/07/2022 Sex: Unknown Functional Status Question Answer Note LastModified by Organizat ion Details LastModified Time Do you use any illicit or recreational drugs? No [id number] Information not available 05/07/2022 Do you or have you ever used any other forms of tobacco or nicotine? No [id number] Information not available 05/07/2022 What is your level of alcohol consumption? 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 Family History Relationship Description Onset Age of this Age Resolved Age Notes LastModified by Organization Details LastModified Time Mother Malignant tumor of colon [id number] Not available 05/07/2022 23:29:08 Mother Arthritis [id number] Not available 05/07/2022 23:29:08 Medical History Condition Response ARTHRITIS Y HYPERTENSION Y HIGH CHOLESTEROL / HYPERLIPIDEMIA Y Past Encounters Encounter ID Performer Location Encounter Start Date Encounter Closed Date Diagnosis/Indication Diagnosis SNOMED-CT Code Diagnosis ICD10 Code Diagnosis IMO Codes Diagnosis Note [id number] [facility] [place] [address] [place] [address] 12/25/2020 00:00:00 12/25/2020 15:50:26 [id number] MD RINKU PeterИрина [facility] [place] [address] [place] [address] 03/05/2021 00:00:00 03/05/2021 19:35:04 [id number] Radha Goodrich MD [facility] [place] [address] [place] [address] 09/03/2021 00:00:00 09/03/2021 14:47:44 [id number] Radha Goodrich MD [facility] [place] [address] [place] [address] 02/03/2022 00:00:00 02/03/2022 11:00:15 [id number] Radha Goodrich MD [facility] [place] [address] [place] [address] 10/23/2022 14:38:10 10/23/2022 15:25:23 Hypothyroidism 27451981 E03.9 TSH in ideal range- continue on LT4 100 mcg daily. She was reminded to take her LT4 on empty stomach with glass of water and wait one hour to eat or have her coffee in morning and up to 4 hours if ever taking any heartburn or reflux medication s to help optimize absorption . Discussed paleo like diet with restrictio n of GMOs to help with energy and to optimize absorption of vitamins and minerals and reduce inflammati on. Impaired f asting glycemia 118593020 R73.01 Continue on natural insulin lead informatica developer s as his a1c is 5% in range. Discussed carb counting and how to read food labels. Recommende d patient to utilize the diabetesfo Garden Price[employer]Rent.com from the ADA website to help with food preparatio n as this presents ideal carb content per meal so this will make carb counting much easier for patient. Recommende d he incorporat e natural insulin lead informatica developer s such as pears, apples, cinnamon, vanesa and sweet potatoes to help mobilize his endogenous insulin. Recommende d up to 150 minutes of moderate level activity/e xercise weekly. Spent up to 25 minutes preparing to see the patient (eg, review of tests), obtaining and/or reviewing separately obtained history, performing a medically appropriat e examinatio n and evaluation , counseling and educating the patient, ordering medication s, tests, along with documentin g clinical informatio n in the electronic health record, independen tly interpreti ng results and communicat ing results to the patient. Patient can be followed by PCP - she/he is aware of my resignatio n and last day of December 19. If needed his/her PCP can refer patient to another endocrinol ogist in the area. All questions /concerns answered and refills necessary at visit today. Health Concerns Section Related Observation LastModified by Organization Detai ls LastModified Time None Recorded Concern Status LastModified by Organization Details LastModified Time None Recorded Advance Directives Directive None Recorded Payers Insurance Date Sequence Insurance Name Policy Number Policy Flores Covered Member ID Flores Member ID Guarantor Name 10/20/2022 1 [employer] - PRIME (MEDICARE REPLACEMENT/ ADVANTAGE - HMO) [id number] Cesar Quick [id number] Cesar Quick Notes Date Note Type Note Provider Name and Address Organization Details Recorded Time 10/23/2022 text/html ROS as noted in the HPI 71 yo male comes in for follow up in management of hypothyroidism and impaired fasting glucose. last seen in Jan at that time we continued glucose support with summer-inositol/tumeric and LT4 100 mcg daily He has lost and maintained over 20 pound weight loss. Patient has good energy and good focus. Has no concerns or issues to discuss today. labs from 09/30/22:a1c 5%TSH of 2.21 uIU/mlFT4 of 1.2 ng/dLFT3 of 3.2 pg/mLB12/folate normalinsulin 17.9 uIU/mLglucose 106 mg/dLCr normalLFT normal Radha Goodrich MD [address] [facility], [facility] [address], [place], [address], [facility] [employer] 10/23/2022 15:30:15
--- OUTSIDE RECORDS SUMMARY | 2024-12-05 11:19 | XMS_ITS | Clinical Summary ---
Author Organization [facility] Address [address] [place] [address] Care Team Providers Care Beeswax Bleacher Name Role Phone Unavailable Primary Care Provider [...] Eye, ketotifen,) 0.025% solution Acti ve Fish Oil-Manteno-3 Fatty Acids 300-500 mg Capsule Take by [...] 75+ series) 12/10/2027 [place] [facility] [place] Address: [facility] [id number] [place] [id number]
--- OUTSIDE RECORDS SUMMARY | 2024-12-30 10:49 | XMS_ITS | Clinical Summary ---
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
== END 2024-12-09 10:27 | disposition home or self-care (01) ==
PROVIDERS: PCP Family Medicine; Visit Provider Internal Medicine Gastroenterology
DX: D12.3 Benign neoplasm of transverse colon (principal); K63.5 Polyp of colon; D12.4 Benign neoplasm of descending colon; D12.5 Benign neoplasm of sigmoid colon
CPT/HCPCS: 88305

== ENCOUNTER 2025-01-05 13:57 | Outpatient (CLI) | payer MEDICARE, SELFPAY ==
--- OUTSIDE RECORDS SUMMARY | 2025-01-05 14:40 | XMS_ITS | Clinical Summary ---
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
--- OUTSIDE RECORDS SUMMARY | 2025-01-05 14:40 | XMS_ITS | Clinical Summary ---
Author Organization [facility] Address [address] [place] [address] Care Team Providers Care Production Control Technologist Name Role Phone Unavailable Primary Care Provider [...] Eye, ketotifen,) 0.025% solution Acti ve Fish Oil-Roxie-3 Fatty Acids 300-500 mg Capsule Take by [...]
--- NOTE | 2025-01-05 15:00 | ECG_ITS ---
Test Date: 2025-01-05 15:23:53 Measurements Intervals Logan Rate: 71 P: 57 MT: 177 QRS: -51 QRSD: 94 T: 33 QT: 376 QTc: 410 Interpretive Statements SINUS RHYTHM LEFT AXIS DEVIATION PATTERN CONSISTENT WITH PULMONARY DISEASE INFERIOR INFARCT, AGE INDETERMINATE ABNORMAL ECG No previous ECG available for comparison Electronically Signed On 01-05-2025 15:59:31 CDT by Melvin Lozano D.O.
[2025-01-05 15:31] LABS: Hematocrit 45.0 % (42.0-52.0); Hemoglobin 15.7 g/dL (14.0-18.0)
[2025-01-05 15:42] LABS: Anion Gap 5 mmol/L (4-12); Blood Urea Nitrogen 19 mg/dL (9-20); Calcium 9.5 mg/dL (8.4-10.2); Carbon Dioxide 28 mmol/L (22-30); Chloride 99 mmol/L (98-107); Estimated Glomerular Filt Rate > 60; Glucose 97 mg/dL (65-110); Potassium 4.0 mmol/L (3.4-5.0); Sodium 132 mmol/L (137-145)
== END 2025-01-05 13:58 | disposition home or self-care (01) ==
LOC: ANHSURGERY 14:02
PROVIDERS: Anesthesiology; PCP Family Medicine; Visit Provider Surgery
DX: Z01.818 Encounter for other preprocedural examination (principal); R94.31 Abnormal electrocardiogram [ECG] [EKG]; D12.6 Benign neoplasm of colon, unspecified
CPT/HCPCS: 36415; 80048; 85014; 85018; 86850; 86900; 86901; 93005

== ENCOUNTER 2025-01-12 13:50 | Inpatient (IN) | payer MEDICARE, SELFPAY ==
[2025-01-05 14:22] VITALS: BP 134/74; PULSE 70; RESP 16; TEMP 36.9; O2SAT 97; BMI 38.1
--- NOTE | 2025-01-05 14:39 | PC.NURSE ---
[facility] has started construction of its new state of the art ER which will open Spring 2026. With this, we anticipate parking may be a challenge for some our surgical patients and families. Parking spaces are limited but are available for all Surgical, obstetrics, and ER patients sharing this lot. If you arrive and find you are having a hard time finding a parking space, please note that we understand the challenges, please drive around the hospital and park near Hospital Entrance 1. When you enter this entrance, you can ask a volunteer to direct or take you back to the surgical waiting area to check in. We appreciate everyone?s understanding of these expected challenges while we build for your future. Report to the Outpatient Waiting Room, entrance under the green pavilion located off [address], at time __6:00AM___ on date ___01/12/25__. Planned Procedure Time: __7:30AM____.? Time changes happen often and if your time is changed the preop area will call you the afternoon before. - You and your visitor will be asked to self-screen and do not enter if you have any COVID symptoms. Please call surgeon if you need to reschedule. - A mask is optional within the hospital at this time. BOWEL PREP DAY BEFORE SURGERY PER DR DREW. Patients may have clear liquids (water, carbonated beverages, clear teas, apple juice) until 3 hours prior to surgery (4:30AM) with a maximum of 20 ounces. - No food from midnight until time of surgery and no smoking, or chewing tobacco (or any form of nicotine). No chewing gum, candy or mints. Take only the following medications with a SIP of water on the morning of surgery: __LEVOTHYROXINE MAY USE ALBUTEROL INHALER NEEDED DO NOT STOP ANY OF YOUR OTHER PRESCRIPTION MEDICATIONS PRIOR TO SURGERY EXCEPT THE FOLLOWING Hold all vitamins and supplements for 3 days per anesthesiologist. LAST DOSE 01/08/25 Please no make-up, nail maori, hairspray, perfume, deodorant, or body powder the day of surgery.? No jewelry (including any body piercings) or valuables the day of surgery, leave them at home.? Please take a shower or bath the night before, or the morning of, surgery with an antibacterial soap.? Wear comfortable, loose fitting clothing.? - Jewelry must be removed prior to entering the operating room.? Rings and piercings that are not removed may be cut off. - The hospital will not accept responsibility for valuables.? - Please leave all valuables, including medications, at home the day of surgery. If you are going home after surgery, a licensed laundry route driver must drive you home.? - NO public transportation without another adult if you receive anesthesia. - We recommend that an adult stay with you for 24 hours following discharge. - We also recommend that you do not drive, make important decision, drink alcoholic beverages, or take any drugs that were not prescribed by your health care provider for at least 24 hours after your discharge time. Follow any additional instructions given to you from your surgeon. BOWEL PREP DAY BEFORE SURGERY PER DR DREW ENSURE BUNDLE DR DREW ANTIBIOTICS DAY BEFORE SURGERY PER DR VIKI CHOUDHURYICLENS SHOWER DAY BEFORE AND MORNING OF SURGERY Telephone instructions given to ____PATIENT and asked if any additional questions and then verbalized understanding. Patient advised to call surgeon office or pre surgery nurse liaison [phone] if any additional questions.
[2025-01-12] VITALS (14 sets, daily range): BP systolic 110–139; BP diastolic 55–93; PULSE 71–91; RESP 12–20; TEMP 35.8–37.3; O2SAT 97–100
[2025-01-12] MEDS: LACTATED RINGERS 1,000 ML 30 ML IV CONT ×2 (06:45→12:35)
[2025-01-12] MEDS: KETOROLAC 15 MG/ML VIAL (*BKC) IV PUSH (07:00)
[2025-01-12] MEDS: ACETAMINOPHEN 500 MG TABLET 1000 MG PO (07:00)
--- NOTE | 2025-01-12 07:25 | WPDANESEPPF ---
Anes - Initial Pre Proc Eval Procedure: Operation Date: 01/12/25 07:30 Proposed Procedures p Hand Assisted Laparoscopic Sigmoid Colectomy - Matilde Oates MD Date/Time: 01/12/25 07:25 Surgeon: Matilde Oates MD Pre Op Diagnosis: Sigmoid Mass Patient Data Age: 74 Gender: M Height: 1.72 m Weight: 113 kg Last Vital Signs Temp 98.4 F 01/05/25 14:22 Pulse 70 01/05/25 14:22 Resp 16 01/05/25 14:22 BP 134/74 01/05/25 14:22 Pulse Ox 97 01/05/25 14:22 O2 Del Method Room Air 01/05/25 14:22 Allergies Allergy/AdvReac Type Severity Reaction Status Date / Time Penicillins Allergy Intermediate Unknown Verified 01/05/25 14:10 phenol Allergy Intermediate HIVES Verified 01/05/25 14:10 allopurinol AdvReac Intermediate Gastrointestinal Verified 01/05/25 14:10 Upset Home Medications ?Medication ?Instructions ?Recorded ?Confirmed ?Type cholecalciferol (vitamin D3) 50 2,000 unit PO DAILY 05/01/21 01/05/25 History mcg (2,000 unit) capsule albuterol sulfate 90 mcg/actuation 2 inh inhalation Q4H PRN shortness 04/18/22 01/05/25 Rx aerosol inhaler (ProAir HFA) of breath or wheezing #8.5 grams atorvastatin 40 mg tablet 40 mg PO DAILY #90 tabs 03/29/24 01/05/25 Rx levothyroxine 100 mcg tablet 100 mcg PO DAILY #90 tabs 03/29/24 01/05/25 Rx colchicine 0.6 mg tablet 0.6 mg PO BID PRN Inflammation 03/30/24 01/05/25 Rx #180 tabs irbesartan 150 1 tablet PO DAILY #90 tabs 06/29/24 01/05/25 Rx mg-hydrochlorothiazide 12.5 mg tablet montelukast 10 mg tablet 10 mg PO QHS #90 tabs 06/29/24 01/05/25 Rx azelastine 137 mcg (0.1 %) nasal 137 mcg intranasal Q12H PRN 11/22/24 01/05/25 History spray allergy symptoms cetirizine 5 mg-pseudoephedrine ER 1 tablet PO BID PRN allergy 11/22/24 01/05/25 History 120 mg tablet,extended symptoms release,12hr (Allergy Relief-D (cetirizine)) fluticasone propionate 50 1 spray intranasal BID PRN allergy 11/22/24 01/05/25 History mcg/actuation nasal symptoms spray,suspension (Flonase Allergy Relief) ciprofloxacin HCl 500 mg tablet 500 mg PO .COMPLEX #1 tablet 12/06/24 01/05/25 Rx metronidazole 500 mg tablet 500 mg PO .COMPLEX #3 tabs 12/06/24 01/05/25 Rx coenzyme Q10 400 mg capsule (Co 400 mg PO DAILY 01/05/25 01/05/25 History Q-10) glucosamine sulf dipot 1 cap PO DAILY 01/05/25 01/05/25 History chlr,msm,chond 550 mg-C 30 mg-vijay 1 mg capsule (Glucosamine Chondroitin) multivitamin (Daily Multi-Vitamin 1 tablet PO DAILY 01/05/25 01/05/25 History tablet) turmeric 400 mg capsule 500 mg PO DAILY 01/05/25 01/05/25 History vitamin A-vitamin C-vitamin E 1 tablet PO BID 01/05/25 01/05/25 History Patient hx anesthesia problems: none Family hx anesthesia problems: none Results Review: All pre-operative results and documents have been reviewed as part of the pre-operative evaluation. FOR[facility]LY [facility] Past Medical History Medical History Posterior right knee pain (10/21/24) Family history of GI malignancy nieces and nephews with GI malignancies Trigger finger of right hand (~08/2024) ring finger Left lower quadrant abdominal pain BMI 36.0-36.9,adult At low risk for fall BMI 35.0-35.9,adult BMI 39.0-39.9,adult Encounter for prostate cancer screening PSA 0.81 on 04/29/2022. PSA 0.83 on 05/25/2023. PSA 0.96 on 08/08/2024. Screening for diabetic retinopathy no diabetic retinopathy on 03/06/2022. No diabetic retinopathy 04/09/2023. no retinopathy 01/29/2024. Encounter for hepatitis C screening test for low risk patient (04/29/22) hepatitis-C screening was negative on 04/29/2022. Obesity (BMI 30-39.9) Acute bronchitis Mild persistent asthma (~2021) pulmonary function study on 06/28/2021 reveals mild obstructive defect with excellent response to bronchodilator. Cough Cervical myelopathy cross innervation of ulnar to the median on EMG and nerve conduction study of the right upper extremity 05/29/2021. MRI of the cervical spine on 06/11/2021 reveals severe cervical spondylosis. Gastro-esophageal reflux disease without esophagitis Bilateral carpal tunnel syndrome EMG and nerve conduction study of the upper extremities on 05/29/2021 reveals bilateral carpal tunnel syndrome severe on the left with cross innervation ulnar to the median distribution. Acute non-recurrent maxillary sinusitis Acute diverticulitis (12/30/20) acute sigmoid diverticulitis on CT on 01/02/2021. Acute diverticulitis descending colon 02/18/2024. Acute abdominal pain in left lower quadrant BMI 38.0-38.9,adult Dupuytren's contracture of left hand Left hamstring muscle strain Body mass index 37.0-37.9, adult Obesity Polyarthralgia Bilateral hand pain Elevated homocysteine Elevated high sensitivity C-reactive protein normal at 1.6 on 04/15/2021. level slightly high at 2.0 on 12/05/2023 lif[facility]. Nocturia PSA 0.77 on 04/15/2021 Benign essential hypertension with target blood pressure below 140/90 Mixed hyperlipidemia total cholesterol 140, triglycerides 141, HDL 58, LDL 60 on 04/15/2021. Total cholesterol 145, triglycerides 142, HDL 66 and LDL 56 on 08/26/2021. Total cholesterol 170, HDL 77, triglycerides 141, LDL 71 on 04/29/2022. Cholesterol 131, triglycerides 103, HDL 52, LDL 60 with ratio 2.5 on 11/19/2022. cholesterol 152, triglycerides 97, HDL 67, LDL 67 with ratio 2.3 on 05/25/2023. Cholesterol 174, triglycerides 124, HDL 71, LDL 80 with ratio of 2.5 on 12/21/2023. Cholesterol 140, triglycerides 123, HDL 62, LDL 58 with ratio 2.3 on 08/08/2024. Osteoarthritis involving multiple joints on both sides of body Hypothyroidism, unspecified TSH 0.77 on 04/15/2021. TSH 2.43 on 04/29/2022. TSH 2.96 on 11/19/2022. TSH 1.08, free T4 1.4, T3 total 84 on 08/08/2024. Surgical History Surgical History (Updated 12/06/24 @ 15:07 by Mary Jane Garcia MA) Hx of carpal tunnel repair 2022 Family History Family History Father Patient's father is , Onset Age: 87 Family history of malignant neoplasm Sibling Patient's brother is , Onset Age: 75 Family history of liver disease, Onset Age: 50 Family history of malignant neoplasm Family history of pancreatic cancer, Onset Age: 76 Grandparent Acute myocardial infarction, Onset Age: 80 Cerebrovascular accident, Onset Age: 80 Mother Family history of pancreatic cancer, Onset Age: 84 Social History Social History Smoking status: Never smoker Alcohol intake: current Drinks per week: 7 Alcohol use details: WINE Substance use: never Substance use type: does not use Do You Feel Safe in your Home?: Yes Lack of Transportation: No Lack of Food: Never True Current Housing: I Have Housing Concerned About Future Housing: No Difficulty Paying Gas/Electric Bills: No Difficulty Paying for Meds: No Currently Unemployed: No Education: Bachelor's Degree Difficulty w/ Childcare or Family Care: No Living arrangements: with family Additional living arrangements comments: Occupation/Education: occupation Additional occupation/education comments: [employer] Spiritual care concerns: No Anes - Eval Final PreProcedure Day of Procedure 01/12/25 07:25 Patient weight: obese Heart: regular rate and rhythm Lungs: clear to auscultation Airway: Mallampati scale class III Neurological: alert and oriented Last oral intake: >/= 8 hours ASA classification: III Emergent: no Anesthetic plan: proceed Anesthesia type and monitoring: general ETT and standard monitoring Results Review: All pre-operative results and documents have been reviewed as part of the pre-operative evaluation. Informed Consent: The patient's anesthetic plan and its attendant risks and benefits were discussed with the patient/family/POA. Questions were solicited and answers provided to the satisfaction of the patient/family/POA.
--- NOTE | 2025-01-12 07:27 | WPDHPUPDATE1 ---
History and Physical Update Update Date/Time: 01/12/25 07:27 History and Physical has been reviewed, including an updated exam of the patient. There are NO changes in the patient's condition. Risks, benefits, and alternatives have been discussed and questions answered. Patient agrees to proceed with procedure.
--- NOTE | 2025-01-12 07:27 | PM.IMHP ---
H&P: [facility] History of Present Illness Date/Time: 01/12/25 07:27 Chief Complaint: Sigmoid colon mass Narrative: Mr. Quick presents to the office at the the request of Dr. Tolliver for evaluation. He recent underwent a colonoscopy screen which showed multiple colon polyps, which were biopsied. A sessile polyp in the proximal sigmoid polyp was unable to be completely removed. Patient denies abdominal pain, nausea, vomiting, rectal bleeding, or change in bowel habits. Review of Systems Review of Systems: All systems reviewed & are unremarkable except as noted in HPI and below PMFSH Past Medical History Medical History Posterior right knee pain (10/21/24) Family history of GI malignancy nieces and nephews with GI malignancies Trigger finger of right hand (~08/2024) ring finger Left lower quadrant abdominal pain BMI 36.0-36.9,adult At low risk for fall BMI 35.0-35.9,adult BMI 39.0-39.9,adult Encounter for prostate cancer screening PSA 0.81 on 04/29/2022. PSA 0.83 on 05/25/2023. PSA 0.96 on 08/08/2024. Screening for diabetic retinopathy no diabetic retinopathy on 03/06/2022. No diabetic retinopathy 04/09/2023. no retinopathy 01/29/2024. Encounter for hepatitis C screening test for low risk patient (04/29/22) hepatitis-C screening was negative on 04/29/2022. Obesity (BMI 30-39.9) Acute bronchitis Mild persistent asthma (~2021) pulmonary function study on 06/28/2021 reveals mild obstructive defect with excellent response to bronchodilator. Cough Cervical myelopathy cross innervation of ulnar to the median on EMG and nerve conduction study of the right upper extremity 05/29/2021. MRI of the cervical spine on 06/11/2021 reveals severe cervical spondylosis. Gastro-esophageal reflux disease without esophagitis Bilateral carpal tunnel syndrome EMG and nerve conduction study of the upper extremities on 05/29/2021 reveals bilateral carpal tunnel syndrome severe on the left with cross innervation ulnar to the median distribution. Acute non-recurrent maxillary sinusitis Acute diverticulitis (12/30/20) acute sigmoid diverticulitis on CT on 01/02/2021. Acute diverticulitis descending colon 02/18/2024. Acute abdominal pain in left lower quadrant BMI 38.0-38.9,adult Dupuytren's contracture of left hand Left hamstring muscle strain Body mass index 37.0-37.9, adult Obesity Polyarthralgia Bilateral hand pain Elevated homocysteine Elevated high sensitivity C-reactive protein normal at 1.6 on 04/15/2021. level slightly high at 2.0 on 12/05/2023 [facility]. Nocturia PSA 0.77 on 04/15/2021 Benign essential hypertension with target blood pressure below 140/90 Mixed hyperlipidemia total cholesterol 140, triglycerides 141, HDL 58, LDL 60 on 04/15/2021. Total cholesterol 145, triglycerides 142, HDL 66 and LDL 56 on 08/26/2021. Total cholesterol 170, HDL 77, triglycerides 141, LDL 71 on 04/29/2022. Cholesterol 131, triglycerides 103, HDL 52, LDL 60 with ratio 2.5 on 11/19/2022. cholesterol 152, triglycerides 97, HDL 67, LDL 67 with ratio 2.3 on 05/25/2023. Cholesterol 174, triglycerides 124, HDL 71, LDL 80 with ratio of 2.5 on 12/21/2023. Cholesterol 140, triglycerides 123, HDL 62, LDL 58 with ratio 2.3 on 08/08/2024. Osteoarthritis involving multiple joints on both sides of body Hypothyroidism, unspecified TSH 0.77 on 04/15/2021. TSH 2.43 on 04/29/2022. TSH 2.96 on 11/19/2022. TSH 1.08, free T4 1.4, T3 total 84 on 08/08/2024. Surgical History Surgical History Hx of carpal tunnel repair 2022 Family History Family History Father Patient's father is , Onset Age: 87 Family history of malignant neoplasm Sibling Patient's brother is , Onset Age: 75 Family history of liver disease, Onset Age: 50 Family history of malignant neoplasm Family history of pancreatic cancer, Onset Age: 76 Grandparent Acute myocardial infarction, Onset Age: 80 Cerebrovascular accident, Onset Age: 80 Mother Family history of pancreatic cancer, Onset Age: 84 Social History Social History Smoking status: Never smoker Alcohol intake: current Drinks per week: 7 Alcohol use details: WINE Substance use: never Substance use type: does not use Do You Feel Safe in your Home?: Yes Lack of Transportation: No Lack of Food: Never True Current Housing: I Have Housing Concerned About Future Housing: No Difficulty Paying Gas/Electric Bills: No Difficulty Paying for Meds: No Currently Unemployed: No Education: Bachelor's Degree Difficulty w/ Childcare or Family Care: No Living arrangements: with family Additional living arrangements comments: Occupation/Education: occupation Additional occupation/education comments: [employer] Spiritual care concerns: No Meds Home Medications and Allergies Home Medications ?Medication ?Instructions ?Recorded ?Confirmed ?Type cholecalciferol (vitamin D3) 50 2,000 unit PO DAILY 05/01/21 01/05/25 History mcg (2,000 unit) capsule albuterol sulfate 90 mcg/actuation 2 inh inhalation Q4H PRN shortness 04/18/22 01/05/25 Rx aerosol inhaler (ProAir HFA) of breath or wheezing #8.5 grams atorvastatin 40 mg tablet 40 mg PO DAILY #90 tabs 03/29/24 01/05/25 Rx levothyroxine 100 mcg tablet 100 mcg PO DAILY #90 tabs 03/29/24 01/05/25 Rx colchicine 0.6 mg tablet 0.6 mg PO BID PRN Inflammation 03/30/24 01/05/25 Rx #180 tabs irbesartan 150 1 tablet PO DAILY #90 tabs 06/29/24 01/05/25 Rx mg-hydrochlorothiazide 12.5 mg tablet montelukast 10 mg tablet 10 mg PO QHS #90 tabs 06/29/24 01/05/25 Rx azelastine 137 mcg (0.1 %) nasal 137 mcg intranasal Q12H PRN 11/22/24 01/05/25 History spray allergy symptoms cetirizine 5 mg-pseudoephedrine ER 1 tablet PO BID PRN allergy 11/22/24 01/05/25 History 120 mg tablet,extended symptoms release,12hr (Allergy Relief-D (cetirizine)) fluticasone propionate 50 1 spray intranasal BID PRN allergy 11/22/24 01/05/25 History mcg/actuation nasal symptoms spray,suspension (Flonase Allergy Relief) ciprofloxacin HCl 500 mg tablet 500 mg PO .COMPLEX #1 tablet 12/06/24 01/05/25 Rx metronidazole 500 mg tablet 500 mg PO .COMPLEX #3 tabs 12/06/24 01/05/25 Rx coenzyme Q10 400 mg capsule (Co 400 mg PO DAILY 01/05/25 01/05/25 History Q-10) glucosamine sulf dipot 1 cap PO DAILY 01/05/25 01/05/25 History chlr,msm,chond 550 mg-C 30 mg-vijay 1 mg capsule (Glucosamine Chondroitin) multivitamin (Daily Multi-Vitamin 1 tablet PO DAILY 01/05/25 01/05/25 History tablet) turmeric 400 mg capsule 500 mg PO DAILY 01/05/25 01/05/25 History vitamin A-vitamin C-vitamin E 1 tablet PO BID 01/05/25 01/05/25 History Allergies Allergy/AdvReac Type Severity Reaction Status Date / Time Penicillins Allergy Intermediate Unknown Verified 01/05/25 14:10 phenol Allergy Intermediate HIVES Verified 01/05/25 14:10 allopurinol AdvReac Intermediate Gastrointestinal Verified 01/05/25 14:10 Upset Exam Const: General: cooperative, comfortable, no acute distress and obese Resp: Auscultation: clear to auscultation bilaterally Cardio: Rate: regular rate Rhythm: regular rhythm GI: Inspection: normal to inspection GI Palp: No abdominal tenderness and Yes Soft to palpation Skin: General skin exam: normal color and no rashes or lesions noted Neuro: General: patient oriented x3 and CN's II-XI intact bilaterally Extrem: General: normal to inspection and full ROM Assessment and Plan Assessment and plan (1) Colonic mass: Code(s): K63.89 - Other specified diseases of intestine Status: Acute Assessment and Plan: will set up for hand assisted laparoscopic sigmoid colon resection
[2025-01-12] MEDS: metroNIDAZOLE 500 MG/ISO 100ML 500 MG/100 ML BAG 100 MG IVPB ×3 (07:38→22:51)
[2025-01-12] MEDS: ceFAZolin 2 GM in SODIUM CHLORIDE 0.9% IV 50 ML 100 ML IVPB ×3 (07:38→21:52)
[2025-01-12] MEDS: BUPIVACAINE/EPINEPHRINE 0.5% 50 ML VIAL 30 ML INFILTRATE (08:33)
--- NOTE | 2025-01-12 11:41 | S_PTH ---
PATIENT: Cesar Quick LOC: [id number] U#:[id number] AGE/SX: 74/M ROOM: 313 RE01/12/[address]: Matilde Oates MD : 1950 BED: 01 DIS: 01/15/2025 SPEC #: [id number] RECD: 01/12/25 13:27 STATUS: IMMANUEL REQ #: [id number] HUMA: 01/12/25 11:[address]: Matilde Oates DEPT: [facility] Surgical RECD BY: Sarika Hummel ENTERED: 01/12/25 13:32 SP TYPE: Surgical OTHR DR: Brian Reveles MD Tissues: A - Colon Segment NonTumor Procedures: Hematoxylin and Eosin Stain Gross and Microscopic Level 5
--- NOTE | 2025-01-12 12:42 | W.PM.PROC2 ---
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 Patient had multiple polyps that were completely removed, however there was 1 polyp in left colon that was unable to be completely resected. This area was previously tattooed during colonoscopy. Findings Tattooed area in the splenic flexure, distal transverse colon Description of Procedure The patient was taken the operating room and placed in supine position. After adequate induction of general anesthesia, the patient prepped and draped in the normal sterile fashion. A time-out was then done to verify the patient's identity, as well as procedure being performed. We began by localizing the anticipated hand port site in the periumbilical region. An incision was then made in the skin and this was taken down and peritoneal. Once confirmed in position, the hand port was placed in the abdomen was insufflated. We then placed if further 5 mm suprapubic port, as well as a right lower quadrant 5 mm port under direct visualization. We then began examination of the sigmoid colon. The colonoscopy report indicated that the residual mass was in the proximal sigmoid colon approximately 45 cm from the anal verge. After careful visualization, as well as some lateral dissection, we were unable to identify any lesion, tatoo in the sigmoid colon. We then were able to visualize the descending colon. Again no area was localized in the descending colon. At this point, we dissected around the transverse colon and splenic flexure. At this point, we were able to note a tatooed area along the posterior, mesenteric side of the splenic flexure. We did visualize the rest of the transverse colon and right colon and no other areas were noted. Given these findings, the decision was made to proceed with a left colectomy. We did this by mobilizing the descending colon along the white line of Toldt. This dissection plane was carried up to the splenic flexure. We then began dissection proximal to the splenic flexure by taking down the omental attachments in getting into the lesser sac. Once we were able to connect the dissection planes, we were able to fully mobilize the left colon and splenic flexure. This did require further placement multiple 5 mm ports. These were done under direct visualization and included a 10 mm port in the left mid abdomen and a right upper 5 mm port. We did further localize the transverse colon to the level of the hepatic flexure. Once we had good mobilization of the left colon, we picked an area approximately 10 cm distal to the tattooed area for transection. A mesenteric window was made with LigaSure device and this area was transected with a echelon stapler. We then began taking down the mesenteric attachments along the descending colon and distal transverse colon. At this point, we were able to extracorporealyze the specimen. Further mesenteric dissection was done with the LigaSure device. We then picked an area in the mid transverse colon, distal to the middle colic vessels, for transection. This was done with a 75 BOWEN stapler. The specimen will now be sent to pathology for further review. I did open up the specimen on the back table to confirm the tattooed area was completely removed. We then completed a [id number] functional end-to-end anastomosis between the mid transverse colon and distal descending colon using a 75 BOWEN stapler followed by a TA 60 stapler. The anterior staple line was oversewn with interrupted 3-0 silk sutures. The anastomosis was noted to be tension-free and widely patent. This was then dropped back into the abdominal cavity. No other pathology was noted and the abdomen was copiously washed out. We then closed the fascia of the hand port site with 0 looped PDS suture x2. All incisions and port sites were closed with skin michele. Sterile dressings were placed on all wounds. Patient tolerated the procedure well and was extubated postop. He will be transferred to the recovery room in stable condition. Estimated Blood Loss 50 Pathology Yes Complications No immediate complications Condition Stable Disposition PACU [facility] Billing Surgery - Charge Forward: Surgery Billing
[2025-01-12] MEDS: fentaNYL CITRATE INJ (*CRX) 100 MCG/2 ML VIAL 25 MCG IV PUSH ×4 (13:28→13:40)
--- NOTE | 2025-01-12 13:55 | ADMGEN ---
This patient, Cesar Quick, was admitted to 3 [facility] Surg Room 313-01. Patient/family oriented to hospital policies and general routines including ID bracelet, bed and alarms, visiting hours, pain management, procedures, bathroom and other care routines, personal items, smoking policy, room service/diet, and visiting hours. Information on how to activate the Rapid Response Team has been discussed. Patient/Family are encouraged to report perceived risks to care and to ask questions if they do not understand what they are told or what they should do.
[2025-01-12] MEDS: LACTATED RINGERS 1,000 ML 100 ML IV CONT (14:35)
[2025-01-12] MEDS: HYDROcodone/acetaminophen (*CRX) 10-325 MG TABLET 1 TAB PO ×2 (14:38→20:43)
--- OUTSIDE RECORDS SUMMARY | 2025-01-12 16:05 | XMS_ITS | Data Portability ---
Author Organization [facility] [employer], Main Office Address [address] [place] [address] Assessment No assessment recorded. Plan of Treatment Reminders Order Date Submit Date Provider Last Modified By Organization Details Last Modified Time Details Appointments None recorded. Lab None recorded. Referral None recorded. Procedures None recorded. Surgeries None recorded. Imaging None recorded. Medication Orders levothyroxi ne 100 mcg tablet 2022 023 [facility] #[id number], [address] [place], [address], 15:03:40 Patient TargetsNo targets recorded. Patient InstructionsNo instructions recorded. Reason for Referral None Reported. Results Created Date Observation Date Name Description Value Unit Range Abnormal Flag Note LastModifiedBy Organization Detail LastModifiedTime 01/16/20 21 01/18/2021 HEMOG LOBIN A1C hemoglobin A1C 5.5 %_of_ total _HGB <5.7 normal Not Available basestone [facility] [id number] [place], [place] [address] [place], [address], 01/18/2021 01:10:32 01/16/20 21 01/18/2021 TSH+F REE T4 TSH 1.65 mIU/L 0.40-4 .50 normal Not Available [facility]estone [address] [place], [address], 01/18/2021 01:10:32 01/16/20 21 01/18/2021 TSH+F REE T4 T4, free 1.3 NG/dL 0.8-1. 8 normal Not Available [facility] [address] [place], [address], 01/18/2021 01:10:32 01/16/20 21 01/18/2021 T3, FREE T3, free 3.0 pg/mL 2.3-4. 2 normal Not Available [address], [address], 01/18/2021 01:10:31 01/16/20 21 01/18/2021 INSUL IN, [...] resul ts accor dingl y. Not Available [address], [address], 01/18/2021 01:10:31 01/16/20 21 01/18/2021 COMPR EHENS LUDIVINA METAB OLIC PANEL glucose 108 mg/dL 65-99 high Fasti ng refer ence inter debi For someo ne witho ut known diabe sara, a gluco se value betwe en 100 and 125 mg/dL is consi stent with predi abete s and shoul d be confi rmed with a follo w-up test. Not Available [address], [address], 01/18/2021 01:10:31 01/16/20 21 01/18/2021 COMPR EHENS LUDIVINA METAB OLIC PANEL urea nitrogen (BUN) 11 mg/dL 7-25 normal Not Available [address], [address], 01/18/2021 01:10:31 01/16/20 21 01/18/2021 COMPR EHENS LUDIVINA METAB OLIC PANEL creatinine 1.13 mg/dL 0.70-1 .25 normal For patie nts >49 years of age, the refer ence limit for Creat inine is appro ximat loreta 13% highe r for peopl e ident ified as Afric an-Am emmanuel n. Not Available [address], [address], 01/18/2021 01:10:31 01/16/20 21 01/18/2021 COMPR EHENS LUDIVINA METAB OLIC PANEL eGFR non-afr. togolese 66 mL/mi n/1.7 3m2 > or = 60 normal Not Available [address], [address], 01/18/2021 01:10:31 01/16/20 21 01/18/2021 COMPR EHENS LUDIVINA METAB OLIC PANEL eGFR 77 mL/mi n/1.7 3m2 > or = 60 normal Not Available [address], [address], 01/18/2021 01:10:31 01/16/20 21 01/18/2021 COMPR EHENS LUDIVINA METAB OLIC PANEL BUN/creatini ne ratio not applic able (calc ) 6-22 Not Available [address], [address], 01/18/2021 01:10:31 01/16/20 21 01/18/2021 COMPR EHENS LUDIVINA METAB OLIC PANEL sodium 137 mmol/ L 135-14 6 normal Not Available [address], [address], 01/18/2021 01:10:31 01/16/20 21 01/18/2021 COMPR EHENS LUDIVINA METAB OLIC PANEL potassium 3.8 mmol/ L 3.5-5. 3 normal Not Available [address], [address], 01/18/2021 01:10:31 01/16/20 21 01/18/2021 COMPR EHENS LUDIVINA METAB OLIC PANEL chloride 101 mmol/ L 98-110 normal Not Available [address], [address], 01/18/2021 01:10:31 01/16/20 21 01/18/2021 COMPR EHENS LUDIVINA METAB OLIC PANEL carbon dioxide 29 mmol/ L 20-32 normal Not Available [address], [address], 01/18/2021 01:10:31 01/16/20 21 01/18/2021 COMPR EHENS LUDIVINA METAB OLIC PANEL calcium 9.4 mg/dL 8.6-10 .3 normal Not Available [address], [address], 01/18/2021 01:10:31 01/16/20 21 01/18/2021 COMPR EHENS LUDIVINA METAB OLIC PANEL protein, total 6.2 g/dL 6.1-8. 1 normal Not Available [address], [address], 01/18/2021 01:10:31 01/16/20 21 01/18/2021 COMPR EHENS LUDIVINA METAB OLIC PANEL albumin 4.0 g/dL 3.6-5. 1 normal Not Available [address], [address], 01/18/2021 01:10:31 01/16/20 21 01/18/2021 COMPR EHENS LUDIVINA METAB OLIC PANEL globulin 2.2 g/dL_ (calc ) 1.9-3. 7 normal Not Available [address], [address], 01/18/2021 01:10:31 01/16/20 21 01/18/2021 COMPR EHENS LUDIVINA METAB OLIC PANEL albumin/glob ulin ratio 1.8 (calc ) 1.0-2. 5 normal Not Available [address], [place], [address], 01/18/2021 01:10:31 01/16/20 21 01/18/2021 COMPR EHENS LUDIVINA METAB OLIC PANEL bilirubin, total 0.9 mg/dL 0.2-1. 2 normal Not Available [address], [address], 01/18/2021 01:10:31 01/16/20 21 01/18/2021 COMPR EHENS LUDIVINA METAB OLIC PANEL alkaline phosphatase 78 U/L 35-144 normal Not Available [address], [address], 01/18/2021 01:10:31 01/16/20 21 01/18/2021 COMPR EHENS LUDIVINA METAB OLIC PANEL AST 32 U/L 10-35 normal Not Available [address], [address], 01/18/2021 01:10:31 01/16/20 21 01/18/2021 COMPR EHENS LUDIVINA METAB OLIC PANEL ALT 37 U/L 9-46 normal Not Available [address], [address], 01/18/2021 01:10:31 01/16/20 21 01/18/2021 LIPID PANEL , STAND MARIA ESTHER cholesterol, total 129 mg/dL <200 normal Not Available [address], [address], 01/18/2021 01:10:30 01/16/20 21 01/18/2021 LIPID PANEL , STAND MARIA ESTHER HDL cholesterol 54 mg/dL > or = 40 normal Not Available [address], [address], 01/18/2021 01:10:30 01/16/20 21 01/18/2021 LIPID PANEL , STAND MARIA ESTHER triglyceride s 121 mg/dL <150 normal Not Available [facility] [place] [address] [place], [address], 01/18/2021 01:10:30 01/16/20 21 01/18/2021 LIPID PANEL [...] 9): 2061- 2068 (http ://ed ucati on.Qu marquiseDineGasm. com/f aq/FA Q164) Not Available [facility] [address] [place] [address] [place], [address], 01/18/2021 01:10:30 01/16/20 21 01/18/2021 LIPID PANEL , STAND MARIA ESTHER chol/HDLC ratio 2.4 (calc ) <5.0 normal Not Available [facility] [address] [place], [address], 01/18/2021 01:10:30 01/16/20 21 01/18/2021 LIPID PANEL , STAND MARIA ESTHER non HDL cholesterol 75 mg/dL _(marva c) <130 normal For patie nts with diabe sara plus 1 major ASCVD risk facto r, treat ing to a non-H DL-C goal of <100 mg/dL (LDL- C of <70 mg/dL ) is carli montano optio n. Not Available [facility] [address] [place], [address], 01/18/2021 01:10:30 01/16/20 21 01/18/2021 TESTO STERO NE, FREE, BIOAV AILAB LE AND TOTAL , MS sex hormone binding globulin 44.1 nmol/ L 22-77 Not Available [address], [address], 01/18/2021 01:10:30 01/16/20 21 01/18/2021 TESTO STERO NE, FREE, BIOAV AILAB LE AND TOTAL , MS albumin 4.2 g/dL 3.6-5. 1 Not Available [address], [address], 01/18/2021 01:10:30 01/16/2001/18/2021 TESTO STERO NE, FREE, BIOAV AILAB LE AND TOTAL , MS testosterone , free 48.2 pg/mL 46.0-2 24.0 Not Available [address], [address], 01/18/2021 01:10:30 01/16/20 21 01/18/2021 TESTO STERO NE, FREE, BIOAV AILAB LE AND TOTAL , MS testosterone ,bioavailabl e 92.8 NG/dL 110.0- 575.0 low Not Available [address], [address], 01/18/2021 01:10:30 01/16/2001/18/2021 TESTO STERO NE, FREE, BIOAV AILAB LE AND TOTAL , MS testosterone , total, MS 457 NG/dL 250-11 00 For addit ional infor chioma vick e refer to https ://ed ucati on.qu estdi sgBig In Japans. com/f aq/FA Q165 (This link is being provi ded for infor andre nal/e ducat ional purpo ses only. ) (Note ) This test was devel oped and its lila tical perfo rmanc e toñito cteri stics have been deter mined by [employer] myrna. It has not been clear ed or appro cesar by the FDA. This assay has been valid ated pursu ant to the CLIA regul ation s and is used for clini marva purpo ses. BALDEMAR med fusio n [address] [facility] [address] [place] [address] [phone] Devaughn french MD Not Available [facility] [address] [address] [place], [address], 01/18/2021 01:10:30 01/16/20 21 01/18/2021 IRON, TIBC AND STEPHANIE TIN PANEL iron, total 119 mcg/d L 50-180 normal Not Available [facility] [address] [address] [place], [address], 01/18/2021 01:10:30 01/16/20 21 01/18/2021 IRON, TIBC AND STEPHANIE TIN PANEL iron binding capacity 265 mcg/d L_(ca lc) 250-42 5 normal Not Available [facility] [address] [address] [place], [address], 01/18/2021 01:10:30 01/16/20 21 01/18/2021 IRON, TIBC AND STEPHANIE TIN PANEL % saturation 45 %_(ca lc) 20-48 normal Not Available [facility] [address] [address] [place], [address], 01/18/2021 01:10:30 01/16/20 21 01/18/2021 IRON, TIBC AND STEPHANIE TIN PANEL ferritin 298 NG/mL 24-380 normal Not Available [facility] [address] [address] [place], [address], 01/18/2021 01:10:30 08/27/19 22 08/31/2021 HEMOG LOBIN [...] Care in Diabe sara(A DA). Not Available basestone [address], [address], 08/31/2021 01:46:21 08/27/19 22 08/31/2021 HEMOG LOBIN A1C copy(ies) sent to: [facility] AD[facility] [address] [facility] [place] [address] Not Available basestone [address], [address], 08/31/2021 01:46:21 08/27/19 22 08/31/2021 TSH+F REE T4 TSH 1.32 mIU/L 0.40-4 .50 normal Not Available [facility] [address] [place], [address], 08/31/2021 01:46:21 08/27/19 22 08/31/2021 TSH+F REE T4 T4, free 1.2 NG/dL 0.8-1. 8 normal Not Available [facility] [address], [address], 08/31/2021 01:46:21 08/27/19 22 08/31/2021 TSH+F REE T4 copy(ies) sent to: [facility] AL GRP ADMN [address] [place] [address] Not Available [address], [address], 08/31/2021 01:46:21 08/27/19 22 08/31/2021 T3, FREE T3, free 3.1 pg/mL 2.3-4. 2 normal Not Available [address], [address], 08/31/2021 01:46:20 08/27/19 22 08/31/2021 T3, FREE copy(ies) sent to: [facility] AL GRP ADMN [address] [place] [address] Not Available [address], [address], 08/31/2021 01:46:20 08/27/19 22 08/31/2021 INSUL IN, [...] resul ts accor dingl y. Not Available [address], [address], 08/31/2021 01:46:20 08/27/19 22 08/31/2021 INSUL IN, FREE (BIOA CTIVE ) copy(ies) sent to: [facility] AL GRP ADMN [address] [place] [address] Not Available [address], [address], 08/31/2021 01:46:20 08/27/19 22 08/31/2021 COMPR EHENS LUDIVINA METAB OLIC PANEL glucose 93 mg/dL 65-99 normal Fasti ng refer ence inter debi Not Available [address], [address], 08/31/2021 01:46:19 08/27/19 22 08/31/2021 COMPR EHENS LUDIVINA METAB OLIC PANEL urea nitrogen (BUN) 12 mg/dL 7-25 normal Not Available [address], [address], 08/31/2021 01:46:19 08/27/19 22 08/31/2021 COMPR EHENS LUDIVINA METAB OLIC PANEL BUN/creatini ne ratio not applic able (calc ) 6-22 Not Available [address], [address], 08/31/2021 01:46:19 08/27/19 22 08/31/2021 COMPR EHENS LUDIVINA METAB OLIC PANEL creatinine 1.01 mg/dL 0.70-1 .25 normal For patie nts >49 years of age, the refer ence limit for Creat inine is appro ximat loreta 13% highe r for peopl e ident ified as Afric an-Am emmanuel n. Not Available [address], [address], 08/31/2021 01:46:19 08/27/19 22 08/31/2021 COMPR EHENS LUDIVINA METAB OLIC PANEL eGFR non-afr. togolese 76 mL/mi n/1.7 3m2 > or = 60 normal Not Available [address], [address], 08/31/2021 01:46:19 08/27/19 22 08/31/2021 COMPR EHENS LUDIVINA METAB OLIC PANEL eGFR 88 mL/mi n/1.7 3m2 > or = 60 normal Not Available [address], [address], 08/31/2021 01:46:19 08/27/19 22 08/31/2021 COMPR EHENS LUDIVINA METAB OLIC PANEL sodium 134 mmol/ L 135-14 6 low Not Available [address], [address], 08/31/2021 01:46:19 08/27/19 22 08/31/2021 COMPR EHENS LUDIVINA METAB OLIC PANEL potassium 4.5 mmol/ L 3.5-5. 3 normal Not Available [address], [address], 08/31/2021 01:46:19 08/27/19 22 08/31/2021 COMPR EHENS LUDIVINA METAB OLIC PANEL chloride 98 mmol/ L 98-110 normal Not Available [address], [address], 08/31/2021 01:46:19 08/27/19 22 08/31/2021 COMPR EHENS LUDIVINA METAB OLIC PANEL carbon dioxide 28 mmol/ L 20-32 normal Not Available [address], [address], 08/31/2021 01:46:19 08/27/19 22 08/31/2021 COMPR EHENS LUDIVINA METAB OLIC PANEL calcium 9.2 mg/dL 8.6-10 .3 normal Not Available [address], [address], 08/31/2021 01:46:19 08/27/19 22 08/31/2021 COMPR EHENS LUDIVINA METAB OLIC PANEL protein, total 6.6 g/dL 6.1-8. 1 normal Not Available [address], [address], 08/31/2021 01:46:19 08/27/19 22 08/31/2021 COMPR EHENS LUDIVINA METAB OLIC PANEL albumin 4.4 g/dL 3.6-5. 1 normal Not Available [address], [address], 08/31/2021 01:46:19 08/27/19 22 08/31/2021 COMPR EHENS LUDIVINA METAB OLIC PANEL globulin 2.2 g/dL_ (calc ) 1.9-3. 7 normal Not Available [address], [address], 08/31/2021 01:46:19 08/27/19 22 08/31/2021 COMPR EHENS LUDIVINA METAB OLIC PANEL albumin/glob ulin ratio 2.0 (calc ) 1.0-2. 5 normal Not Available [address], [address], 08/31/2021 01:46:19 08/27/19 22 08/31/2021 COMPR EHENS LUDIVINA METAB OLIC PANEL bilirubin, total 0.8 mg/dL 0.2-1. 2 normal Not Available [address], [address], 08/31/2021 01:46:19 08/27/19 22 08/31/2021 COMPR EHENS LUDIVINA METAB OLIC PANEL alkaline phosphatase 98 U/L 35-144 normal Not Available [address], [address], 08/31/2021 01:46:19 08/27/19 22 08/31/2021 COMPR EHENS LUDIVINA METAB OLIC PANEL AST 29 U/L 10-35 normal Not Available [address], [address], 08/31/2021 01:46:19 08/27/19 22 08/31/2021 COMPR EHENS LUDIVINA METAB OLIC PANEL ALT 33 U/L 9-46 normal Not Available [address] [address] [place], [address], 08/31/2021 01:46:19 08/27/19 22 08/31/2021 COMPR EHENS LUDIVINA METAB OLIC PANEL copy(ies) sent to: [facility] [address] [place] [address] Not Available [address] [address] [place], [address], 08/31/2021 01:46:19 08/27/19 22 08/31/2021 LIPID PANEL , STAND MARIA ESTHER chol/HDLC ratio 2.2 (calc ) <5.0 normal Not Available [address] [place], [address], 08/31/2021 01:46:16 08/27/19 22 08/31/2021 LIPID PANEL , STAND MARIA ESTHER cholesterol, total 145 mg/dL <200 normal Not Available [address] [address] [place], [address], 08/31/2021 01:46:16 08/27/19 22 08/31/2021 LIPID PANEL , STAND MARIA ESTHER HDL cholesterol 66 mg/dL > or = 40 normal Not Available [address] [address] [place], [address], 08/31/2021 01:46:16 08/27/19 22 08/31/2021 LIPID PANEL , STAND MARIA ESTHER triglyceride s 142 mg/dL <150 normal Not Available [address] [place], [address], 08/31/2021 01:46:16 08/27/19 22 08/31/2021 LIPID PANEL , STAND MARIA ESTHER LDL-choleste rol 56 mg/dL _(marva c) [...] 2061- 2068 (http ://ed ucati on.Qu estDi Undertones. com/f aq/FA Q164) Not Available [facility] [address] [place], [address], 08/31/2021 01:46:16 08/27/19 22 08/31/2021 LIPID PANEL , STAND MARIA ESTHER non HDL cholesterol 79 mg/dL _(marva c) <130 normal For patie nts with diabe sara plus 1 major ASCVD risk facto r, treat ing to a non-H DL-C goal of <100 mg/dL (LDL- C of <70 mg/dL ) is consi dered a thera peuti c optio n. Not Available [facility] [address] [address], [place], [address], 08/31/2021 01:46:16 08/27/19 22 08/31/2021 LIPID PANEL , STAND MARIA ESTHER copy(ies) sent to: [facility] [address] [place] [address] Not Available [facility] [address] [address], [place], [address], 08/31/2021 01:46:16 01/09/20 22 01/09/2022 HEMOG LOBIN [...] Care in Diabe sara(A DA). Not Available [address] [address] [place], [address], 01/09/2022 05:32:04 01/09/20 22 01/09/2022 TSH+F REE T4 TSH 2.41 mIU/L 0.40-4 .50 normal Not Available [address] [address] [place], [address], 01/09/2022 05:32:04 01/09/20 22 01/09/2022 TSH+F REE T4 T4, free 1.2 NG/dL 0.8-1. 8 normal Not Available [facility] [address] [address] [place], [address], 01/09/2022 05:32:04 01/09/20 22 01/09/2022 T3, FREE T3, free 3.4 pg/mL 2.3-4. 2 normal Not Available [facility] [address] [address] [place], [address], 01/09/2022 05:32:03 01/09/20 22 01/09/2022 VITAM IN B12/F OLATE , SERUM PANEL vitamin B12 913 pg/mL 200-11 00 normal Not Available [facility] [address] [address] [place], [address], 01/09/2022 05:32:03 01/09/20 22 01/09/2022 VITAM IN B12/F OLATE , SERUM PANEL folate, serum 18.3 NG/mL normal Refer ence Range Low: <3.4 Borde rline : 3.4-5 .4 Angelita l: >5.4 Not Available [address], [address], 01/09/2022 05:32:03 01/09/20 22 01/09/2022 COMPR EHENS LUDIVINA METAB OLIC PANEL potassium 4.2 mmol/ L 3.5-5. 3 normal Not Available [address], [address], 01/09/2022 05:32:02 01/09/20 22 01/09/2022 COMPR EHENS LUDIVINA METAB OLIC PANEL glucose 115 mg/dL 65-99 high Fasti ng refer ence inter debi For someo ne witho ut known diabe sara, a gluco se value betwe en 100 and 125 mg/dL is consi stent with predi abete s and shoul d be confi rmed with a follo w-up test. Not Available [address], [address], 01/09/2022 05:32:02 01/09/20 22 01/09/2022 COMPR EHENS LUDIVINA METAB OLIC PANEL urea nitrogen (BUN) 16 mg/dL 7-25 normal Not Available [address], [address], 01/09/2022 05:32:02 01/09/20 22 01/09/2022 COMPR EHENS LUDIVINA METAB OLIC PANEL creatinine 1.16 mg/dL 0.70-1 .35 normal Not Available [address], [address], 01/09/2022 05:32:02 01/09/20 22 01/09/2022 COMPR EHENS LUDIVINA METAB OLIC PANEL eGFR 68 mL/mi n/1.7 3m2 > or = 60 normal The eGFR is based on the CKD-E PI 2020 equat ion. To calcu late the new eGFR from a previ ous Creat inine or Cysta tin C resul t, go to https ://[place] solis.o paola/pr ofess ional s/ kdoqi /gfr% 5Fcal culat or Not Available [address] [address] [place], [address], 01/09/2022 05:32:02 01/09/20 22 01/09/2022 COMPR EHENS LUDIVINA METAB OLIC PANEL BUN/creatini ne ratio not applic able (calc ) 6-22 Not Available [address], [address], 01/09/2022 05:32:02 01/09/20 22 01/09/2022 COMPR EHENS LUDIVINA METAB OLIC PANEL sodium 137 mmol/ L 135-14 6 normal Not Available [address], [address], 01/09/2022 05:32:02 01/09/20 22 01/09/2022 COMPR EHENS LUDIVINA METAB OLIC PANEL chloride 100 mmol/ L 98-110 normal Not Available [address], [address], 01/09/2022 05:32:02 01/09/20 22 01/09/2022 COMPR EHENS LUDIVINA METAB OLIC PANEL carbon dioxide 27 mmol/ L 20-32 normal Not Available [facility] [address], [address], 01/09/2022 05:32:02 01/09/20 22 01/09/2022 COMPR EHENS LUDIVINA METAB OLIC PANEL calcium 9.6 mg/dL 8.6-10 .3 normal Not Available [facility] [address] [place], [address], 01/09/2022 05:32:02 01/09/20 22 01/09/2022 COMPR EHENS LUDIVINA METAB OLIC PANEL protein, total 6.6 g/dL 6.1-8. 1 normal Not Available [address], [address], 01/09/2022 05:32:02 01/09/20 22 01/09/2022 COMPR EHENS LUDIVINA METAB OLIC PANEL albumin 4.5 g/dL 3.6-5. 1 normal Not Available [address], [address], 01/09/2022 05:32:02 01/09/20 22 01/09/2022 COMPR EHENS LUDIVINA METAB OLIC PANEL globulin 2.1 g/dL_ (calc ) 1.9-3. 7 normal Not Available [address], [address], 01/09/2022 05:32:02 01/09/20 22 01/09/2022 COMPR EHENS LUDIVINA METAB OLIC PANEL albumin/glob ulin ratio 2.1 (calc ) 1.0-2. 5 normal Not Available [address], [address], 01/09/2022 05:32:02 01/09/20 22 01/09/2022 COMPR EHENS LUDIVINA METAB OLIC PANEL bilirubin, total 0.6 mg/dL 0.2-1. 2 normal Not Available [address], [address], 01/09/2022 05:32:02 01/09/20 22 01/09/2022 COMPR EHENS LUDIVINA METAB OLIC PANEL alkaline phosphatase 96 U/L 35-144 normal Not Available [address], [address], 01/09/2022 05:32:02 01/09/20 22 01/09/2022 COMPR EHENS LUDIVINA METAB OLIC PANEL AST 36 U/L 10-35 high Not Available [address], [address], 01/09/2022 05:32:02 01/09/20 22 01/09/2022 COMPR EHENS LUDIVINA METAB OLIC PANEL ALT 39 U/L 9-46 normal Not Available [address], [address], 01/09/2022 05:32:02 10/01/19 23 10/01/2022 COMPR EHENS LUDIVINA METAB OLIC PANEL glucose 106 mg/dL 65-99 high Fasti ng refer ence inter debi For someo ne witho ut known diabe sara, a gluco se value betwe en 100 and 125 mg/dL is consi stent with predi abete s and shoul d be confi rmed with a follo w-up test. Not Available [address] [address] [place], [address], 10/01/2022 11:57:04 10/01/19 23 10/01/2022 COMPR EHENS LUDIVINA METAB OLIC PANEL urea nitrogen (BUN) 14 mg/dL 7-25 normal Not Available [address], [address], 10/01/2022 11:57:04 10/01/19 23 10/01/2022 COMPR EHENS LUDIVINA METAB OLIC PANEL creatinine 1.13 mg/dL 0.70-1 .35 normal Not Available [address], [address], 10/01/2022 11:57:04 10/01/19 23 10/01/2022 COMPR EHENS [...] kdoqi /gfr% 5Fcal culat or Not Available [address], [address], 10/01/2022 11:57:04 10/01/19 23 10/01/2022 COMPR EHENS LUDIVINA METAB OLIC PANEL BUN/creatini ne ratio NOT APPLIC ABLE (calc ) 6-22 Not Available [address], [address], 10/01/2022 11:57:04 10/01/19 23 10/01/2022 COMPR EHENS LUDIVINA METAB OLIC PANEL sodium 134 mmol/ L 135-14 6 low Not Available [address], [address], 10/01/2022 11:57:04 10/01/19 23 10/01/2022 COMPR EHENS LUDIVINA METAB OLIC PANEL potassium 4.1 mmol/ L 3.5-5. 3 normal Not Available [address], [address], 10/01/2022 11:57:04 10/01/19 23 10/01/2022 COMPR EHENS LUDIVINA METAB OLIC PANEL chloride 100 mmol/ L 98-110 normal Not Available [address], [address], 10/01/2022 11:57:04 10/01/19 23 10/01/2022 COMPR EHENS [facility]UDIVINA METAB OLIC PANEL carbon dioxide 26 mmol/ L 20-32 normal Not Available [address], [address], 10/01/2022 11:57:04 10/01/19 23 10/01/2022 COMPR EHENS LUDIVINA METAB OLIC PANEL calcium 9.4 mg/dL 8.6-10 .3 normal Not Available [address] [place], [address], 10/01/2022 11:57:04 10/01/19 23 10/01/2022 COMPR EHENS LUDIVINA METAB OLIC PANEL protein, total 6.3 g/dL 6.1-8. 1 normal Not Available [address], [address], 10/01/2022 11:57:04 10/01/19 23 10/01/2022 COMPR EHENS LUDIVINA METAB OLIC PANEL albumin 4.2 g/dL 3.6-5. 1 normal Not Available [address], [address], 10/01/2022 11:57:04 10/01/19 23 10/01/2022 COMPR EHENS [facility] METAB OLIC PANEL globulin 2.1 g/dL_ (calc ) 1.9-3. 7 normal Not Available [address], [address], 10/01/2022 11:57:04 10/01/19 23 10/01/2022 COMPR EHENS LUDIVNIA METAB OLIC PANEL albumin/glob ulin ratio 2.0 (calc ) 1.0-2. 5 normal Not Available [address], [address], 10/01/2022 11:57:04 10/01/19 23 10/01/2022 COMPR EHENS [facility] METAB OLIC PANEL bilirubin, total 1.2 mg/dL 0.2-1. 2 normal Not Available [address], [address], 10/01/2022 11:57:04 10/01/19 23 10/01/2022 COMPR EHENS LUDIVINA METAB OLIC PANEL alkaline phosphatase 75 U/L 35-144 normal Not Available [address] [address] [place], [address], 10/01/2022 11:57:04 10/01/19 23 10/01/2022 COMPR EHENS LUDIVINA METAB OLIC PANEL AST 23 U/L 10-35 normal Not Available [address], [address], 10/01/2022 11:57:04 10/01/19 23 10/01/2022 COMPR EHENS LUDIVINA METAB OLIC PANEL ALT 26 U/L 9-46 normal Not Available [address], [address], 10/01/2022 11:57:04 10/01/1910/01/2022 INSUL IN insulin 17.9 uIU/m L normal Refer ence Range < or = 18.4 Risk: Optim al < or = 18.4 Moder ate NA High >18.4 Adult cardi ovasc ular event risk categ ory cut point s (opti mal, moder ate, high) are based on Insul in Refer ence Inter debi studi es perfo rmed at [facility] Diagn ostic s in 2021. Not Available [employer] [address], [address], 10/01/2022 11:57:05 10/01/1910/01/2022 VITAM IN B12/F OLATE , SERUM PANEL vitamin B12 744 pg/mL 200-11 00 normal Not Available [employer] [address], [address], 10/01/2022 11:57:09 10/01/1910/01/2022 VITAM IN B12/F OLATE , SERUM PANEL folate, serum 21.0 NG/mL normal Refer ence Range Low: <3.4 Borde rline : 3.4-5 .4 Angelita l: >5.4 Not Available [employer] [address], [address], 10/01/2022 11:57:09 10/01/19 23 10/01/2022 T3, FREE T3, free 3.2 pg/mL 2.3-4. 2 normal Not Available [facility] [address] [place], [address], 10/01/2022 11:57:09 10/01/19 23 10/01/2022 TSH+F REE T4 TSH 2.21 mIU/L 0.40-4 .50 normal Not Available [facility] [place] [address] [place], [address], 10/01/2022 11:57:10 10/01/19 23 10/01/2022 TSH+F REE T4 T4, free 1.2 NG/dL 0.8-1. 8 normal Not Available [facility] [place] [address] [place], [address], 10/01/2022 11:57:10 10/01/1910/01/2022 HEMOG LOBIN A1C hemoglobin [...] Diabe sara(A DA). Not Available [facility] [address] [place], [address], 10/01/2022 11:57:10 Result Notes None recorded. Problems Name Problem SNOMED Code Status Onset Date Resolution Date Notes Provider Name and Address Organization Details Recorded Time Hypothyroidism 69660598 Active 2022 Radha Goodrich MD [address] [facility], [facility] [address], [place], [address], [facility] [employer] 3 15:02:46 Impaired fasting glycemia 223820588 Active 2022 Radha Goodrich MD [address], [address], [place], [address], [employer] [facility] [employer] 3 15:03:06 Problem Notes None recorded. Procedures Surgical History Date Name Laterality Status Provider Name and Address Organization Details Recorded Time Knee arthroscopy/s urgery completed Not Available [facility] 05/07/2022 23:29:06 Nasal sinus therapy completed Not Available [facility] hospital 05/07/2022 23:29:06 Imaging Results None recorded. Procedure Notes None recorded. Medical Equipment None Reported. Allergies Allergen ID Allergen Name Allergen Category Reaction Reaction Severity Criticality Documentation Date Start Date Code Code System Note Provider Name and Address Organization Details Recorded Time 63032 Product containin g penicilli n (product) medicatio n Not available Not available Not available 05/07/2022 48699 8001 SNOMED Not Available [facility] 3 23:30:53 Medications Name Sig Start Date [...] % 96 % 85 /min 98 [degF] 081350. 46 g 140/82 mm[Hg] Not Available [facility] 3 23:29:36 Date Recorded Body height Body mass index (BMI) Body weight Heart rate Body temperature Systolic And Diastolic Provider Name and Address Organization Details Last Updated DateTime 3 172.72 cm 35.8 kg/m2 351872 g 83 /min 97.9 [degF] 130/82 mm[Hg] Stephanie Mayers MA [place] [facility] [place] [facility] 3 14:55:55 Date Recorded Body mass index (BMI) Body height Oxygen saturation Oxygen saturation in Arterial blood by Pulse oximetry Heart rate Body temperature Body weight Systolic And Diastolic Provider Name and Address Organization Details Last Updated DateTime 1 38.9 kg/m2 172.72 cm 96 % 96 % 89 /min 98.6 [degF] 717705. 65 g 146/80 mm[Hg] Not Available [facility] 3 23:29:36 Date Recorded Body mass index (BMI) Body height Oxygen saturation Oxygen saturation in Arterial blood by Pulse oximetry Heart rate Body temperature Body weight Systolic And Diastolic Provider Name and Address Organization Details Last Updated DateTime 2 39.1 kg/m2 172.72 cm 95 % 95 % 80 /min 97.9 [degF] 535538. 24 g 160/80 mm[Hg] Not Available [facility] 3 23:29:36 Date Recorded Body mass index (BMI) Body height Oxygen saturation Oxygen saturation in Arterial blood by Pulse oximetry Heart rate Body temperature Body weight Systolic And Diastolic Provider Name and Address Organization Details Last Updated DateTime 1 38.2 kg/m2 172.72 cm 97 % 97 % 71 /min 98 [degF] 268266. 68 g 144/80 mm[Hg] Not Available [facility] 23:29:36 Social History Question Answer Notes LastModified by Organizat ion Details LastModified Time Tobacco Smoking Status Never Smoker Not Available Critical access hospital 05/07/2022 23:28:39 What Is Your Level Of Caffeine Consumption? Heavy [id number] Information not available 05/07/2022 What Is Your Relationship Status? [id number] Information not available 05/07/2022 Has Tobacco Cessation Counseling Been Provided? No [id number] Information not available 05/07/2022 Sex: Unknown Functional Status Question Answer Note LastModified by Organizat ion Details LastModified Time Do you use any illicit or recreational drugs? No [id number] Information not available 05/07/2022 Do you or have you ever used any other forms of tobacco or nicotine? No [id number] Information not available 05/07/2022 What is your level of alcohol consumption? 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 Family History Relationship Description Onset Age of this Age Resolved Age Notes LastModified by Organization Details LastModified Time Mother Malignant neoplasm of colon [id number] Not available 05/07/2022 23:29:08 Mother Arthritis [id number] Not available 05/07/2022 23:29:08 Medical History Condition Response ARTHRITIS Y HIGH CHOLESTEROL / HYPERLIPIDEMIA Y HYPERTENSION Y Past Encounters Encounter ID Performer Location Encounter Start Date Encounter Closed Date Diagnosis/Indication Diagnosis SNOMED-CT Code Diagnosis ICD10 Code Diagnosis IMO Codes Diagnosis Note [id number] [facility] [place] [address] [place] [address] 12/25/2020 00:00:00 12/25/2020 15:50:26 [id number] MD RINKU PeterИрина Endo [place] [address] [place] [address] 03/05/2021 00:00:00 03/05/2021 19:35:04 [id number] Radha Goodrich MD [facility] [place] [address] [place] [address] 09/03/2021 00:00:00 09/03/2021 14:47:44 [id number] Radha Goodrich MD [facility] [place] [address] [place] [id number] 02/03/2022 00:00:00 02/03/2022 11:00:15 [id number] Radha Goodrich MD [facility] [place] [address] [place] [address] 10/23/2022 14:38:10 10/23/2022 15:25:23 Hypothyroidism 04491075 E03.9 TSH in ideal range- continue on [...] reduce inflammati on. Impaired f asting glycemia 076919532 R73.01 Continue on natural insulin forensic analyst s as his a1c is 5% in range. Discussed carb counting and how to read food labels. Recommende d patient to utilize the diabetesfo [employer]os[employer] from the ADA website to help with food preparatio n as this presents ideal carb content per meal so this will make carb counting much easier for patient. Recommende d he incorporat e natural insulin forensic analyst s such as pears, apples, cinnamon, vanesa [...] - PRIME (MEDICARE REPLACEMENT/ ADVANTAGE - HMO) [id number] Cesar Quick [id number] Cesar Quick Notes Date Note Type Note [...] mg/dLCr normalLFT normal Radha Goodrich MD [address] [facility], [facility] [address], [place], [address], [facility] [employer] 10/23/2022 15:30:15
--- OUTSIDE RECORDS SUMMARY | 2025-01-12 16:06 | XMS_ITS | Clinical Summary ---
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 Gender Identity Male 09/29/2022 11:54 AM CDT Sexual Orientation Straight 09/29/2022 11 :54 AM CDT 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
--- NOTE | 2025-01-12 18:57 | PC.NURSE ---
I have reviewed the License Pending Nurse Kim Carey's documentation and agree with charting.
[2025-01-12] MEDS: FAMOTIDINE 20 MG/2 ML VIAL IV PUSH (20:44)
[2025-01-13 00:13] VITALS: BP 129/73; PULSE 77; RESP 18; TEMP 36.3; O2SAT 95
[2025-01-13] MEDS: LACTATED RINGERS 1,000 ML 100 ML IV CONT (04:00)
[2025-01-13 04:15] VITALS: BP 121/63; PULSE 76; RESP 18; TEMP 36.7; O2SAT 95
[2025-01-13 06:36] LABS: Hematocrit 38.1 % (42.0-52.0); Hemoglobin 13.0 g/dL (14.0-18.0); Mean Corpuscular HGB Conc 34.1 g/dl (32-36); Mean Corpuscular Hemoglobin 32.3 pg (26-34); Mean Corpuscular Volume 94.5 fl (80-100); Platelet Count Result 159 k/mm3 (150-375); Red Blood Count 4.03 M/mm3 (4.6-6.20); White Blood Count 11.1 K/mm3 (4.5-10.0)
[2025-01-13 06:57] LABS: Anion Gap 8 mmol/L (4-12); Blood Urea Nitrogen 18 mg/dL (9-20); Calcium 8.3 mg/dL (8.4-10.2); Carbon Dioxide 25 mmol/L (22-30); Chloride 96 mmol/L (98-107); Estimated CRCL calculation 58 ml/min; Estimated Glomerular Filt Rate 56; Glucose 124 mg/dL (65-110); Potassium 4.1 mmol/L (3.4-5.0); Sodium 129 mmol/L (137-145)
--- NOTE | 2025-01-13 08:29 | PM.PNGS ---
Progress Note: A&P Assessment and Plan (1) Colonic mass: Code(s): K63.89 - Other specified diseases of intestine Status: Acute Assessment and Plan: POD#1 s/p hand assisted laparoscopic left colectomy Doing well postoperatively. Continue CLD, encourage OOB and ambulation, monitor for ROBF, continue incentive spirometer, as needed pain control, continue to wean IV pain meds as tolerated, DC Lopez and IVF. Please see attending attestation for the plan at its Subjective Subjective Date/Time Seen: 01/13/25 08:29 Interval history: NAEON. POD #1 s/p left colectomy. Doing well postoperatively. Ambulating, tolerated CLD, pain controlled. Incisions mostly CDI. Had a small amount of staining at midline dressing, hemostatic this morning. Labs reviewed. Review of Systems Review of Systems: All systems reviewed & are unremarkable except as noted in HPI and below Exam Narrative: General: Awake, alert, no acute distress HEENT: NC/AT, EOMI, mucous membranes pink and moist Neck: No masses or swelling, no JVD Heart: Regular rate, HDS Lungs: Symmetric expansion, no IWOB, on RA Abdomen: Soft, aTTP, nondistended, non peritoneal, incisions CDI, there was a small amount of staining at the midline incision, however this is hemostatic and clean this morning Extremities: Moves all, normal inspection Objective Data Vital Signs Vital Signs: Vital Signs - 24 hr 01/12/25 12:35 01/12/25 12:50 01/12/25 13:05 Temperature 98.1 F Pulse Rate 87 87 80 Respiratory Rate 16 16 14 Blood Pressure 114/58 L 133/77 133/84 Pulse Oximetry 98 97 100 Oxygen Delivery Simple Face Mask Nasal Cannula Nasal Cannula Oxygen Flow Rate 8 2 2 01/12/25 13:20 01/12/25 13:35 01/12/25 13:45 Temperature Pulse Rate 80 80 80 Respiratory Rate 18 20 12 Blood Pressure 136/85 113/55 L 139/85 Pulse Oximetry 100 100 99 Oxygen Delivery Nasal Cannula Room Air Nasal Cannula Oxygen Flow Rate 2 2 01/12/25 13:58 01/12/25 14:13 01/12/25 15:27 Temperature 96.7 F L 96.4 F L Pulse Rate 91 83 Respiratory Rate 16 16 Blood Pressure 110/93 H 120/92 H Pulse Oximetry 98 100 97 Oxygen Delivery Nasal Cannula Oxygen Flow Rate 3 01/12/25 15:27 01/12/25 18:21 01/12/25 18:25 Temperature 98.7 F Pulse Rate 88 Respiratory Rate 16 Blood Pressure 128/74 Pulse Oximetry 97 100 99 Oxygen Delivery Nasal Cannula Room Air Oxygen Flow Rate 2 01/12/25 19:45 01/12/25 20:00 01/13/25 00:13 Temperature 97.1 F L 97.4 F L Pulse Rate 78 78 77 Respiratory Rate 18 18 18 Blood Pressure 134/78 129/73 Pulse Oximetry 97 97 95 Oxygen Delivery Room Air Oxygen Flow Rate 01/13/25 04:15 Temperature 98.1 F Pulse Rate 76 Respiratory Rate 18 Blood Pressure 121/63 Pulse Oximetry 95 Oxygen Delivery Oxygen Flow Rate Intake/Output Intake/Output: Intake & Output 01/10/25 01/11/25 01/12/25 01/13/25 23:59 23:59 23:59 23:59 Intake Total 940 1658 Output Total 30 850 Balance 910 808 Meds/Results Medications: Active Medications Generic Name Dose Route Start Last Admin Trade Name Freq PRN Reason Stop Dose Admin Hydrocodone Bitart/Acetaminophen 1 tab 01/12/25 12:36 Hydrocodone/Acetaminophen (*Crx) 5-325 Mg Tablet PO Q4H PRN Pain Rated 4-6 Hydrocodone Bitart/Acetaminophen 1 tab 01/12/25 12:36 01/12/25 20:43 Hydrocodone/Acetaminophen (*Crx) 10-325 Mg Tablet PO 1 tab Q4H PRN Administration Pain Rated 7-10 Albuterol 2 puff 01/12/25 13:50 Albuterol Sulfate (*Sp) Aerosol 1 Puff INHALATION Q4HRT PRN Shortness Of Breath Or Wheezing Azelastine HCl 0 spray 01/12/25 13:50 Azelastine Hcl Nasal 0.1% 137 Mcg/Spr 30 Ml Btl NASAL Q12H PRN allergy symptoms Enoxaparin Sodium 40 mg 01/13/25 09:00 Enoxaparin 40 Mg/0.4 Ml Syringe SUB-Q DAILY MARIA ALEJANDRA Famotidine 20 mg 01/12/25 21:00 01/12/25 20:44 Famotidine 20 Mg/2 Ml Vial IV PUSH 20 mg Q12HR MARIA ALEJANDRA Administration Hydromorphone HCl 1 mg 01/12/25 12:36 Hydromorphone Hcl Inj (*Crx) 1 Mg/Ml Syr IV PUSH Q2H PRN Breakthrough Pain Rated 7-10 or NPO Hydromorphone HCl 0.5 mg 01/12/25 12:36 Hydromorphone Hcl Inj (*Crx) 1 Mg/Ml Syr IV PUSH Q2H PRN Breakthrough Pain Rated 4-6 or NPO Lactated Ringer's 1,000 mls @ 100 mls/hr 01/12/25 12:40 01/13/25 04:00 Lr - Lactated Ringers Iv IV CONT 100 mls/hr .Q10H MARIA ALEJANDRA Administration Ibuprofen 800 mg in 200 mls @ 400 mls/hr 01/12/25 12:36 Caldolor 800 Mg/200 Ml IVPB Q6H PRN Breakthrough Pain Rated 1-3 or NPO Naloxone HCl 0.1 mg 01/12/25 12:36 Naloxone Hcl 0.4 Mg/Ml Vial IV PUSH Q2M PRN Opiate Reversal Ondansetron HCl 4 mg 01/12/25 12:36 Ondansetron Inj 4 Mg/2 Ml Vial IV PUSH Q4H PRN Nausea And Vomiting Labs Labs: Laboratory Results - last 24 hr 01/13/25 05:55 WBC 11.1 H RBC 4.03 L Hgb 13.0 L Hct 38.1 L MCV 94.5 MCH 32.3 MCHC 34.1 RDW 13.0 Plt Count 159 MPV 9.6 Sodium 129 L Potassium 4.1 Chloride 96 L Carbon Dioxide 25 Anion Gap 8 BUN 18 Creatinine 1.27 Estim Creat Clear Calc 58 Estimated GFR 56 L Glucose 124 H Calcium 8.3 L Quality VTE Prophylaxis VTE prophylaxis: mechanical ordered and pharmacologic ordered
[2025-01-13 08:47] VITALS: O2SAT 96
[2025-01-13] MEDS: FAMOTIDINE 20 MG/2 ML VIAL IV PUSH ×2 (08:47→20:53)
[2025-01-13] MEDS: HYDROcodone/acetaminophen (*CRX) 10-325 MG TABLET 1 TAB PO ×4 (08:47→20:56)
[2025-01-13] MEDS: ENOXAPARIN 40 MG/0.4 ML SYRINGE SUB-Q (08:48)
[2025-01-13 10:21] VITALS: BP 130/87; PULSE 83; RESP 16; TEMP 37; O2SAT 97
[2025-01-13 10:59] VITALS: O2SAT 96
--- NOTE | 2025-01-13 14:16 | WPDANESPN ---
Anes - Prog Note Post-Op Date/Time: 01/13/25 14:16 Cardiovascular status: normal Respiratory status: normal Airway patency: baseline Mental status: baseline Post-Op hydration status: normal Vital Signs: Last Vital Signs Temp 98.6 F 01/13/25 10:21 Pulse 83 01/13/25 10:21 Resp 16 01/13/25 10:21 BP 130/87 01/13/25 10:21 Pulse Ox 96 01/13/25 10:59 O2 Del Method Room Air 01/13/25 10:59 O2 Flow Rate 2 01/12/25 15:27 Pain Score (VAS): 0/10 I/O: Intake & Output 01/12/25 01/13/25 01/13/25 23:59 07:59 15:59 Intake Total 490 1300 598 Output Total 850 1000 Balance 490 450 -402 Laboratory Tests 01/13/25 05:55 01/13/25 05:55 01/13/25 05:55 WBC 11.1 H RBC 4.03 L Hgb 13.0 L Hct 38.1 L MCV 94.5 MCH 32.3 MCHC 34.1 RDW 13.0 Plt Count 159 MPV 9.6 Sodium 129 L Potassium 4.1 Chloride 96 L Carbon Dioxide 25 Anion Gap 8 BUN 18 Creatinine 1.27 Estim Creat Clear Calc 58 Estimated GFR 56 L Glucose 124 H Calcium 8.3 L Post-procedural complaints: none Patient Feedback: Patient satisfied with anesthetic care.
[2025-01-13 14:21] VITALS: BP 123/89; PULSE 89; RESP 16; TEMP 36.8; O2SAT 95
[2025-01-13] MEDS: MONTELUKAST SODIUM 10 MG TABLET PO (20:53)
[2025-01-14] MEDS: HYDROcodone/acetaminophen (*CRX) 10-325 MG TABLET 1 TAB PO ×3 (02:24→20:01)
[2025-01-14] MEDS: LEVOTHYROXINE SODIUM 100 MCG TABLET PO (05:36)
[2025-01-14] MEDS: HYDROcodone/acetaminophen (*CRX) 5-325 MG TABLET 1 TAB PO (05:36)
[2025-01-14] MEDS: ATORVASTATIN 40 MG TABLET PO (08:50)
[2025-01-14] MEDS: IRBESARTAN 150 MG TABLET PO (08:50)
[2025-01-14] MEDS: ENOXAPARIN 40 MG/0.4 ML SYRINGE SUB-Q (08:51)
[2025-01-14] MEDS: FAMOTIDINE 20 MG/2 ML VIAL IV PUSH ×2 (08:51→20:01)
--- NOTE | 2025-01-14 11:05 | PM.PNGS ---
Progress Note: A&P Assessment and Plan (1) Colonic mass: Code(s): K63.89 - Other specified diseases of intestine Status: Acute Assessment and Plan: status post left colectomy, continue routine postoperative care, advance diet as tolerated, encourage out of bed and incentive spirometer use, pathology reviewed Subjective Subjective Date/Time Seen: 01/14/25 11:05 Interval history: feels pretty good, some incisional soreness and bloating, loose bowel movement this morning Review of Systems Review of Systems: All systems reviewed & are unremarkable except as noted in HPI and below Exam Const: General: cooperative, comfortable and no acute distress Resp: Auscultation: clear to auscultation bilaterally Cardio: Rate: regular rate Rhythm: regular rhythm GI: Inspection: normal to inspection, distended and incision GI Palp: Yes abdominal tenderness, Yes Soft to palpation, No Guarding due to palpation present (GI) and No Rigid due to palpation Objective Data Vital Signs Vital Signs: Vital Signs - 24 hr 01/13/25 14:21 01/14/25 08:00 Temperature 36.8 C Pulse Rate 89 Respiratory Rate 16 Blood Pressure 123/89 Pulse Oximetry 95 Oxygen Delivery Room Air Intake/Output Intake/Output: Intake & Output 01/11/25 01/12/25 01/13/25 01/14/25 23:59 23:59 23:59 23:59 Intake Total 940 1898 425 Output Total 30 2100 Balance 910 -202 425 Meds/Results Medications: Active Medications Generic Name Dose Route Start Last Admin Trade Name Freq PRN Reason Stop Dose Admin Hydrocodone Bitart/Acetaminophen 1 tab 01/12/25 12:36 01/14/25 05:36 Hydrocodone/Acetaminophen (*Crx) 5-325 Mg Tablet PO 1 tab Q4H PRN Administration Pain Rated 4-6 Hydrocodone Bitart/Acetaminophen 1 tab 01/12/25 12:36 01/14/25 02:24 Hydrocodone/Acetaminophen (*Crx) 10-325 Mg Tablet PO 1 tab Q4H PRN Administration Pain Rated 7-10 Albuterol 2 puff 01/12/25 13:50 Albuterol Sulfate (*Sp) Aerosol 1 Puff INHALATION Q4HRT PRN Shortness Of Breath Or Wheezing Atorvastatin Calcium 40 mg 01/14/25 09:00 01/14/25 08:50 Atorvastatin 40 Mg Tablet PO 40 mg DAILY MARIA ALEJANDRA Administration Azelastine HCl 0 spray 01/12/25 13:50 Azelastine Hcl Nasal 0.1% 137 Mcg/Spr 30 Ml Btl NASAL Q12H PRN allergy symptoms Enoxaparin Sodium 40 mg 01/13/25 09:00 01/14/25 08:51 Enoxaparin 40 Mg/0.4 Ml Syringe SUB-Q 40 mg DAILY MARIA ALEJANDRA Administration Famotidine 20 mg 01/12/25 21:00 01/14/25 08:51 Famotidine 20 Mg/2 Ml Vial IV PUSH 20 mg Q12HR MARIA ALEJANDRA Administration Fluticasone Propionate 1 spray 01/13/25 14:50 Fluticasone Propionate 0.05% Na Spr 16 Gm Btl (*Bkc) NASAL BID PRN allergy symptoms Hydrochlorothiazide 12.5 mg 01/14/25 09:00 01/14/25 08:50 Hydrochlorothiazide 12.5 Mg Capsule PO 12.5 mg QAM MARIA ALEJANDRA Administration Hydromorphone HCl 1 mg 01/12/25 12:36 Hydromorphone Hcl Inj (*Crx) 1 Mg/Ml Syr IV PUSH Q2H PRN Breakthrough Pain Rated 7-10 or NPO Hydromorphone HCl 0.5 mg 01/12/25 12:36 Hydromorphone Hcl Inj (*Crx) 1 Mg/Ml Syr IV PUSH Q2H PRN Breakthrough Pain Rated 4-6 or NPO Ibuprofen 800 mg in 200 mls @ 400 mls/hr 01/12/25 12:36 Caldolor 800 Mg/200 Ml IVPB Q6H PRN Breakthrough Pain Rated 1-3 or NPO Irbesartan 150 mg 01/14/25 09:00 01/14/25 08:50 Irbesartan 150 Mg Tablet PO 150 mg QAM [facility] Administration Levothyroxine Sodium 100 mcg 01/14/25 06:30 01/14/25 05:36 Levothyroxine Sodium 100 Mcg Tablet PO 100 mcg DAILY@0630 MARIA ALEJANDRA Administration Montelukast Sodium 10 mg 01/13/25 21:00 01/13/25 20:53 Montelukast Sodium 10 Mg Tablet PO 10 mg QHS MARIA ALEJANDRA Administration Naloxone HCl 0.1 mg 01/12/25 12:36 Naloxone Hcl 0.4 Mg/Ml Vial IV PUSH Q2M PRN Opiate Reversal Ondansetron HCl 4 mg 01/12/25 12:36 Ondansetron Inj 4 Mg/2 Ml Vial IV PUSH Q4H PRN Nausea And Vomiting
[2025-01-14] MEDS: MONTELUKAST SODIUM 10 MG TABLET PO (20:01)
[2025-01-14 23:00] VITALS: BP 127/66; PULSE 77; RESP 17; TEMP 36.9; O2SAT 96
[2025-01-15] MEDS: HYDROcodone/acetaminophen (*CRX) 10-325 MG TABLET 1 TAB PO (03:25)
[2025-01-15 06:00] VITALS: BP 114/54; PULSE 70; RESP 16; TEMP 36.2; O2SAT 95
--- NOTE | 2025-01-15 09:55 | P.DS_ITS ---
DS: Admitting Diagnosis Discharge Date 01/15/2025 Admitting Diagnosis left colon mass DS: Discharge Diagnosis Discharge Diagnosis (1) Colonic mass: Code(s): K63.89 - Other specified diseases of intestine Status: Acute Assessment and Plan: status post hand assisted laparoscopic left colectomy, doing well, continue routine postoperative care, pathology has been reviewed with patient, home with p.o. analgesia and Colace, follow-up 01/25 DS: Summary Hospital Course Reason for hospitalization: left colon mass Hospital Course: The patient is a 74-year-old male initially presenting to the office after colonoscopy. The patient was found to have a left colon polyp that was unable to be completely excised. Given these findings, the patient was recommended for hand assisted laparoscopic left colectomy. On 01/12, the patient was taken to the operating room and hand assisted laparoscopic left colectomy was performed. Please see full operative report for details of this procedure. Postoperatively, the patient did well and was transferred to the surgical floor. On postoperative day 1. , the patient was doing well and was started on a clear liquid diet. His Lopez was removed and he was up and ambulating without difficulty. On postoperative day 2, the patient continued to do well and began to have some bowel function. His diet was slowly advanced which he tolerated without issue. On postoperative day 3., he has been tolerating a heart healthy diet and has been up and ambulating without difficulty. His pain is well controlled with p.o. analgesia. At this time he will be discharged home with p.o. analgesia and Colace. He will follow up with me on 01/25 for staple removal. His pathology has returned and has been reviewed with the patient. Status at Discharge Functional status at discharge: independent ambulation Overall status at discharge: patient is progressing back to baseline Time Spent with Patient Time attestation: Total time spent providing and/or coordinating discharge services: Time spent: Less than 30 minutes Exam Const: General: cooperative, comfortable and no acute distress Resp: Auscultation: clear to auscultation bilaterally Cardio: Rate: regular rate Rhythm: regular rhythm GI: Inspection: normal to inspection, distended and incision GI Palp: Yes abdominal tenderness and Yes Soft to palpation DS: Data Data Completed and Pending Completed studies during hospitalization: Pending at discharge 01/12/25 11:41 Surgical [PTH] Routine Discharge Plan Discharge Attending physician on discharge: Matilde Oates Discharging Clinician: Matilde Oates Anticipated Discharge Date/Time: 01/15/25 12:00 Patient Disposition: Home Activity: may shower and no straining Diet: as tolerated Wound Care Instructions: incision open to air Discharge Instructions: ok to shower over incision with soap and water Patient Instructions: Antibiotic Form Patient Language: New Zealander Stand Alone Forms: General Discharge Information Follow-up/Referrals: Matilde Oates MD [Physician, General Surgery] - 01/25/25 Discharge Medications: New hydrocodone-acetaminophen 5-325 mg tablet 1 tablet PO Q6H PRN (Reason: pain) Qty: 30 0RF docusate sodium [Colace] 100 mg capsule 100 mg PO BID Qty: 30 0RF Continued metronidazole 500 mg tablet 500 mg PO .COMPLEX Qty: 3 0RF Rx Instructions: 500 mg orally 1 tablet by mouth at 1:00pm, 2:00pm, and 11:00pm; ciprofloxacin HCl 500 mg tablet 500 mg PO .COMPLEX Qty: 1 0RF Rx Instructions: 500 mg orally 1 tablet by mouth at 2:00PM; cholecalciferol (vitamin D3) 50 mcg (2,000 unit) capsule 2,000 unit PO DAILY turmeric 400 mg capsule 500 mg PO DAILY vitamin A-vitamin C-vitamin E Tablet 1 tablet PO BID Rx Instructions: administer with a meal Glucosamine Chondroitin 550-30-1 mg capsule 1 cap PO DAILY multivitamin [Daily Multi-Vitamin] Tablet 1 tablet PO DAILY coenzyme Q10 [Co Q-10] 400 mg capsule 400 mg PO DAILY albuterol sulfate [ProAir HFA] 90 mcg/actuation HFA aerosol inhaler 2 inh INHALATION Q4H PRN (Reason: shortness of breath or wheezing) Qty: 8.5 11RF atorvastatin 40 mg tablet 40 mg PO DAILY Qty: 90 3RF levothyroxine 100 mcg tablet 100 mcg PO DAILY Qty: 90 3RF Patient Comments: QAM colchicine 0.6 mg tablet 0.6 mg PO BID PRN (Reason: Inflammation) Qty: 180 3RF irbesartan-hydrochlorothiazide 150-12.5 mg tablet 1 tablet PO DAILY Qty: 90 3RF Patient Comments: QAM montelukast 10 mg tablet 10 mg PO QHS Qty: 90 3RF cetirizine-pseudoephedrine [Allergy Relief-D (cetirizine)] 5-120 mg tablet extended release 12 hr 1 tablet PO BID PRN (Reason: allergy symptoms) Rx Instructions: TAKE 1 TABLET BY MOUTH EVERY 12 HOURS NEEDED FOR ALLERGY SYMPTOMS azelastine 137 mcg (0.1 %) spray,non-aerosol 137 mcg NASAL Q12H PRN (Reason: allergy symptoms) fluticasone propionate [Flonase Allergy Relief] 50 mcg/actuation spray,suspension 1 spray intranasal BID PRN (Reason: allergy symptoms) Rx Instructions: administer into each nostril Date of admission: 01/12/25 13:50 Primary Care Provider: Brian Reveles Admitting Provider: Matilde Oates Attending physician on admission: Matilde Oates Condition: Stable
[2025-01-15] MEDS: LEVOTHYROXINE SODIUM 100 MCG TABLET PO (10:27)
[2025-01-15] MEDS: IRBESARTAN 150 MG TABLET PO (10:28)
[2025-01-15] MEDS: FAMOTIDINE 20 MG/2 ML VIAL IV PUSH (10:28)
[2025-01-15] MEDS: ATORVASTATIN 40 MG TABLET PO (10:28)
[2025-01-15] MEDS: HYDROcodone/acetaminophen (*CRX) 5-325 MG TABLET 1 TAB PO (10:56)
--- NOTE | 2025-01-16 16:27 | PC.NURSE ---
During the post discharge courtesy call the patient expressed some concerns about his sutures. I advised him to call Dr. Oates's office.
== END 2025-01-15 11:00 | disposition home or self-care (01) | DRG 330 ==
LOC: ANH3MEDSUR 13:52
PROVIDERS: Admitting Provider Surgery; PCP Family Medicine; Visit Provider Surgery
PROC: 0D1E4Z4 Bypass Large Intestine to Cutaneous, Percutaneous Endoscopic Approach (ICD-10-PCS; principal; 2025-01-12 07:30)
DX: K63.89 Other specified diseases of intestine (principal); M47.12 Other spondylosis with myelopathy, cervical region; K63.5 Polyp of colon; K21.9 Gastro-esophageal reflux disease without esophagitis; G56.03 Carpal tunnel syndrome, bilateral upper limbs; E66.9 Obesity, unspecified; E03.9 Hypothyroidism, unspecified; E78.2 Mixed hyperlipidemia; I10 Essential (primary) hypertension; Z68.39 Body mass index [BMI] 39.0-39.9, adult; J45.30 Mild persistent asthma, uncomplicated; M15.9 Polyosteoarthritis, unspecified
CPT/HCPCS: 36415; 80048; 85027; 88307; J0690; A9270; C1729; J1100; J1171; J1650; J1836; J1885; J2003; J2371; J2405; J2704; J3010; J7030; J7120